=== PATIENT | male | born 1955 | race Caucasian/White ===

== ENCOUNTER → 2016-12-08 | Day surgery (SDC) | payer BC ==
[2016-11-20 15:10] VITALS: Ht 185.4 cm; Wt 136.4 kg
[~2016-12-08] VITALS: Ht 185.4 cm; Wt 136.4 kg
[~2016-12-08] MED LIST: 500ML BSS 0.3ML EPI 1:1000PF IRRIG ONE; ACETAMINOPHEN 325 MG TAB PO PRN; AMVISC PLUS 0.8ML SYRINGE INT OCU ONE; ATROPINE SULFATE 0.1 MG/ML 5ML SYR IV PRN; BRIMONIDINE TART 0.2% OP SOLN PER DROP CHARGE ONE; BSS FLUSH ONE; CHOL20007 PO; ENDOCOAT 0.85ML SYRINGE INT OCU ONE; EpHEDrine SULFATE INJ 50 MG/ML AMP IV PRN; EpINEphrine INJ 1MG/ML AMP 1 MG/ML AMP ONE; GLUCTAB18 PO; GLYCDRO6 OPB; LACTATED RINGER'S 1000ML 500 ML IV SCH; LIDOCAINE 4% OP SOLN DROP CHARGE ONE; LIDOCAINE 4% OP SOLN DROP CHARGE OPL SCH; LIDOCAINE HCL 1% MPF 2 ML VIAL ONE; LISI-729 PO; MELO15TA4 PO; METH4PAK PO; MIDAZOLAM HCL 1 MG/ML 2ML VIAL ONE; MIX: 3ML BSS AND 1ML EPI(PF) TOP ONE; MOXIFLOXACIN OPH SOLN PER DROP CHARGE ONE; MULT-506 PO; OMEG10007 PO; ONDANSETRON INJ 2 MG/ML 2 ML VIAL IV PRN; POVIDONE-IODINE OP SOLN 30 ML BTL ONE; PROPARACAINE 0.5% OP SOLN PER DROP CHARGE OPL SCH; SENNTAB23 PO; TOBRAMYCIN/DEXAMETHASONE OPH OINT PER APPLN CHARGE ONE; VISCOAT 0.5ML SYRINGE INT OCU ONE
--- NOTE | 2016-12-08 09:20 | History & Physical Bridge - [place] ---
H&P Re-Evaluation Bridge Note: I have examined the patient, reviewed the History & Physical and in the interval since the performance of the History & Physical I have noted the following changes of clinical significance: No changes noted
[2016-12-08] MEDS: PHENYLEPHRINE HCL 2.5% OP SOLN PER DROP CHARGE OPL SCH ×2 (09:21→09:26)
[2016-12-08] MEDS: TROPICAMIDE 1% OP SOLN PER DROP CHARGE OPL SCH ×2 (09:22→09:27)
[2016-12-08] MEDS: CYCLOPENTOLATE HCL 1% OP SOLN PER DROP CHARGE OPL SCH ×2 (09:23→09:28)
[2016-12-08] MEDS: KETOROLAC 0.5% OP SOLN PER DROP CHARGE OPL SCH ×2 (09:24→09:29)
[2016-12-08] MEDS: MOXIFLOXACIN OPH SOLN PER DROP CHARGE OPL SCH ×2 (09:25→09:35)
--- NOTE | 2016-12-08 10:14 | Discharge Instructions-[facility]urgCtr ---
Discharge Instructions Date of Service Dec 08, 2016. Visit Reason for Visit: Cataract Left Eye Discharge Discharge Diagnosis / Problem: cataract left eye Discharge Goals Goal(s): Improve function Activity Recommendations Activity Limitations: per Instructions/Follow-up section Lifting Limitations: no more than 5 pounds Anesthesia . Post Anesthesia Instructions: If you have had General Anesthesia or IV Sedation: * Do not drive today. * Resume driving when surgeon permits. * Do not make important decisions or sign legal documents today. * Call surgeon for: 1. Temperature elevations greater than 101 degrees F. 2. Uncontrollable pain. 3. Excessive bleeding. 4. Persistent nausea and vomiting. 5. Medication intolerance (nausea, vomiting or rash). * For nausea and vomiting use only clear liquids such as: tea, soda, bouillon until nausea subsides, then gradually increase diet as tolerated. * If you have any concerns or questions, call your surgeon's office. If physician is unavailable and it is an emergency, call 911 or go to the nearest emergency room. . Instructions / Follow-Up Instructions / Follow-Up ACTIVITY RECOMMENDATIONS: * Light activities * You may walk outside, read, watch television. * Mild irritation and blurred vision are common for the first few days, redness around the white part of the eye is common. MEDICATIONS: Resume previous medications unless instructed otherwise by your surgeon. Eye drops (today and tomorrow): Cipro - one drop in operative eye every 2 hours while awake Prednisolone 1% - one drop in operative eye every 2 hours while awake Ketorolac - one drop in operative eye every 2 hours while awake SPECIAL CARE INSTRUCTIONS: * If any problems or concerns, please call Dr. Ballesteros's office at . * Keep plastic shield taped over eye to sleep at night. * Keep plastic shield taped over eye except to administer eye drops. * Keep plastic shield on until office visit the following day. FOLLOW UP VISIT: Follow-up with Dr. Ballesteros in the [place] office as scheduled. If not already scheduled, please call the office at . Diet Recommendations Home Diet: resume previous diet Procedures Procedures Performed: Left Cataract Phacoemulsification With Intraocular Lens Implant Pending Studies Studies pending at discharge: no Medical Emergencies . Who to Call and When: Medical Emergencies: If at any time you feel your situation is an emergency, please call 911 immediately. . Non-Emergent Contact Non-Emergency issues call your: Traffic Assistant . . "Provider Documentation" section prepared by Jus Ballesteros. .
--- NOTE | 2016-12-08 10:16 | [facility] Operative Report ---
Operative Report Operative Date Dec 08, 2016. Pre-Operative Diagnosis Cataract Left Eye Post-Operative Diagnosis Same Procedure(s) Performed Left Cataract Phacoemulsification With Intraocular Lens Implant Surgeon Dr. Ballesteros Drying Can Worker Surgeon(s) None Estimated Blood Loss 0 mL Findings cataract left eye Specimens None Drains none Anesthesia local with sedation Complication(s) None Disposition Recovery Room / PACU Implants [id number] 16.5 Indications decreased vision left eye Description of Procedure After informed consent was obtained in the holding area the patient was wheeled back to the operating room where cardiac monitoring leads and oxygen by nasal cannula was administered by Anesthesia. Gentle IV sedation was given, and the patient's left eye was prepped and draped in usual sterile fashion. A wire lid speculum was placed into the left eye and the operating microscope was swung into position. Using 0.12 forceps and a Supersharp blade a paracentesis port was made 3 o'clock hours away from the 3 o'clock position of the patient's left eye. 1% non-preserved Lidocaine was then injected into the anterior chamber for anesthesia. A 2.0 mm keratotome blade was then used to make a shelved clear corneal incision at the 3 o'clock position of the left eye. Amvisc was injected into the anterior chamber and a cystotome and Utrata forceps were used to perform a curvilinear capsulorrhexis. BSS on a hydrodissection cannula was used to hydrodissect the lens nucleus away from the capsular bag. The phacoemulsification handpiece was then used in a stop and chop fashion to remove the lens nucleus. The irrigation and aspiration handpiece was then used to remove the residual cortical material. Amvisc was injected into the capsular bag and anterior chamber and a [employer]ch [employer] Lomb MX60 16.5 Diopter intraocular lens was injected into the capsular bag. Irrigation and aspiration handpiece was used to remove the residual viscoelastic material. The wounds were hydrated and noted to be watertight. The wire lid speculum was removed from the eye. Vigamox, Brimonidine, and TobraDex ointment were placed on the eye and it was shielded. It should be noted that EndoCoat was used extensively during the case to protect the cornea endothelium. DISPOSITION: The patient tolerated the procedure well and was wheeled to the post anesthesia care unit in stable condition. I attest to the content of the Intraoperative Record and any orders documented therein. Any exceptions are noted below. I attest to the content of the Intraoperative Record and any orders documented therein. Any exceptions are noted below.
[2016-12-08 10:18] VITALS: TEMP 37
--- NOTE | 2016-12-08 10:33 | Anesthesia Progress Nt - [facility] ---
Anesthesia Post Op Note Date & Time Dec 08, 2016 at 10:33 Vital Signs Pain Intensity: 0 Vital Signs Past 12 Hours Date Time Temp Pulse Resp B/P (MAP) Pulse Ox O2 Delivery O2 Flow Rate FiO2 12/08/16 10:18 37 78 18 121/75 (90) 96 Room Air 12/08/16 09:01 36.8 81 20 158/95 (116) 94 Room Air Notes Mental Status: alert / awake / arousable, participated in evaluation Pt Amnestic to Procedure: Yes Nausea / Vomiting: adequately controlled Pain: adequately controlled Airway Patency, RR, SpO2: stable & adequate BP & HR: stable & adequate Hydration State: stable & adequate Anesthetic Complications: no major complications apparent
[2016-12-08 10:36] VITALS: BP 125/83; PULSE 77; O2SAT 96
== END | disposition home or self-care (01) ==
LOC: X.SURG 08:30
PROVIDERS: ATTEND Ophthalmology
DX: H25.12 Age-related nuclear cataract, left eye (principal); I10 Essential (primary) hypertension; Z87.81 Personal history of (healed) traumatic fracture; M19.90 Unspecified osteoarthritis, unspecified site; E66.9 Obesity, unspecified; Z87.442 Personal history of urinary calculi; N40.0 Benign prostatic hyperplasia without lower urinary tract symptoms

== ENCOUNTER → 2017-02-18 | Outpatient (CLI) | payer BC ==
[~2017-02-18] MED LIST changes: -500ML BSS 0.3ML EPI 1:1000PF IRRIG ONE; -ACETAMINOPHEN 325 MG TAB PO PRN; -AMVISC PLUS 0.8ML SYRINGE INT OCU ONE; -ATROPINE SULFATE 0.1 MG/ML 5ML SYR IV PRN; -BRIMONIDINE TART 0.2% OP SOLN PER DROP CHARGE ONE; -BSS FLUSH ONE; -ENDOCOAT 0.85ML SYRINGE INT OCU ONE; -EpHEDrine SULFATE INJ 50 MG/ML AMP IV PRN; -EpINEphrine INJ 1MG/ML AMP 1 MG/ML AMP ONE; -LACTATED RINGER'S 1000ML 500 ML IV SCH; -LIDOCAINE 4% OP SOLN DROP CHARGE ONE; -LIDOCAINE 4% OP SOLN DROP CHARGE OPL SCH; -LIDOCAINE HCL 1% MPF 2 ML VIAL ONE; -MIDAZOLAM HCL 1 MG/ML 2ML VIAL ONE; -MIX: 3ML BSS AND 1ML EPI(PF) TOP ONE; -MOXIFLOXACIN OPH SOLN PER DROP CHARGE ONE; -ONDANSETRON INJ 2 MG/ML 2 ML VIAL IV PRN; -POVIDONE-IODINE OP SOLN 30 ML BTL ONE; -PROPARACAINE 0.5% OP SOLN PER DROP CHARGE OPL SCH; -TOBRAMYCIN/DEXAMETHASONE OPH OINT PER APPLN CHARGE ONE; -VISCOAT 0.5ML SYRINGE INT OCU ONE
--- NOTE | 2017-02-18 14:50 | DIAGNOSTIC IMAGING REPORT ---
FLUOROSCOPIC GUIDED LEFT HIP STEROID INJECTION FLUOROSCOPY TIME: 12 seconds. 1 fluoroscopic spot image. HISTORY: Left hip pain.. PROCEDURE: After obtaining written informed consent, the patient was placed supine on the fluoroscopy table. A suitable site for needle insertion was marked using fluoroscopic guidance. The left hip was prepped and draped in the usual sterile fashion. 1% lidocaine was used for skin, subcutaneous and deep soft tissue anesthesia. Under intermittent fluoroscopic guidance, a 22 gauge x 5 inch spinal needle was inserted into the left hip joint. 2 cc of Optiray 300 was injected to confirm the intra-articular location. This is followed by a mixture of 8cc of 0.5% bupivacaine and 2 cc of betamethasone at the request of the referring physician. The needle was then removed. There were no apparent complications. IMPRESSION: Fluoroscopic-guided left hip steroid injection without immediate complication. Electronically signed by: Alberto Monique M.D. 02/18/2017 2:49 PM Dictated Date/Time: 02/18/2017 2:47 PM
== END | disposition home or self-care (01) ==
LOC: C.RADBC 13:32
PROVIDERS: ATTEND Orthopaedic Surgery
DX: M16.12 Unilateral primary osteoarthritis, left hip (principal)

== ENCOUNTER → 2017-08-04 | Day surgery (SDC) | payer BC, OTHER ==
[2017-07-24 14:01] VITALS: Ht 185.4 cm; Wt 136.4 kg
[~2017-08-04] VITALS: Ht 185.4 cm; Wt 136.4 kg
[~2017-08-04] MED LIST changes: +LIDOCAINE HCL 2% 2 ML VIAL (20MG/ML) ONE; +MELO-83 PO; -MELO15TA4 PO; -METH4PAK PO; +MIDAZOLAM HCL 1 MG/ML 2ML VIAL ONE; +ONDANSETRON INJ 2 MG/ML 2 ML VIAL ONE; +PROPOFOL IV EMULSION 10 MG/ML 20 ML VIAL IV ONE; +SODIUM CHLORIDE 0.9% 500ML 500 ML IV ONE
--- NOTE | 2017-08-04 09:54 | Endo History and Physical ---
History & Physical Date of Service: Aug 04, 2017. Chief Complaint: Screening Referring Physician: Dr. Kenneth Carpenter History of Present Illness 62 yo CM who presents for screening colonoscopy. Past Surgical History Hx Cardiac Surgery: No Hx Internal Defibrillator: No Hx Pacemaker: No Hx Abdominal Surgery: No Hx Post-Op Nausea and Vomiting: No Hx Cancer Surgery: No Hx Thoracic Surgery: No Hx Orthopedic: Yes (RT LOWER ARM SURGERY WITH HARDWARE, ANKLE SURGERY WITH HARDWARE) Hx Urinary Tract Surgery: No Family History None Social History Smoking Status: Never Smoker Hx Substance Use: No Hx Alcohol Use: Yes (OCCASIONAL) Allergies Coded Allergies: No Known Allergies (Verified , 08/04/17) Current Medications Reported Home Medications Medications Dose Route/Sig Max Daily Dose Days Date Category Artificial Tears (Tskuzprr-Heaiuhzmklbo-Vhuddxxm) 1 Felice Felice 1 Drop OPB BID-QID 11/20/16 Reported Stool Softener (Sennosides-Docusate Sodium) 1 Tab Tab 2 Tab PO QPM 11/20/16 Reported Multivitamin (Multivitamins) Tab 1 Tab PO QPM 11/20/16 Reported Osteo Bi-Flex Regular Str (Glucosamine-Chondroitin) 1 Tab Tab 2 Tabs PO QPM 11/20/16 Reported Bone Gap-3 (Fish Oil) 1 Ea Cap 1 Cap PO QPM 11/20/16 Reported Vitamin D3 (Cholecalciferol) 2,000 Unit Tab 1 Tab PO QPM 11/20/16 Reported Meloxicam 15 Mg Tab 1 Tab PO LUNCH 11/20/16 Reported Zestril (Lisinopril) 5 Mg Tab 5 Mg PO QAM 11/20/16 Reported Vital Signs Weight (Kilograms): 136.36 Height (Feet): 6 Height (Inches): 1 Date Time Temp Pulse Resp B/P (MAP) Pulse Ox O2 Delivery O2 Flow Rate FiO2 08/04/17 08:55 37 99 20 114/76 (89) 95 Room Air Physical Exam General Appearance: WD/WN, no apparent distress Respiratory/Chest: Auscultation: breath sounds normal Cardiovascular: Heart Auscultation: RRR Abdomen: Bowel Sounds: normal Inspection & Palpation: soft, non-distended, no tenderness, guarding & rebound Assessment and Plan Assessment: 62 yo CM who presents for screening colonoscopy. Plan: Proceed with colonoscopy.
--- NOTE | 2017-08-04 10:48 | Discharge Instructions ---
Endoscopy Patient Instructions Date / Procedure(s) Performed Aug 04, 2017. Colonoscopy Allergy Information Coded Allergies: No Known Allergies (Verified , 08/04/17) Discharge Date / Findings Aug 04, 2017. Colon polyp Diverticulosis Internal hemorrhoids Medication Instructions Stopped Medication(s): last dose all supplements on Thursday charmaine OK to resume all medications today as prescribed Reported Home Medications Medications Dose Route/Sig Max Daily Dose Days Date Category Artificial Tears (Jshwhcrh-Uekfjgysubyd-Pgigjiqn) 1 Felice Felice 1 Drop OPB BID-QID 11/20/16 Reported Stool Softener (Sennosides-Docusate Sodium) 1 Tab Tab 2 Tab PO QPM 11/20/16 Reported Multivitamin (Multivitamins) Tab 1 Tab PO QPM 11/20/16 Reported Osteo Bi-Flex Regular Str (Glucosamine-Chondroitin) 1 Tab Tab 2 Tabs PO QPM 11/20/16 Reported [place]der[place]-3 (Fish Oil) 1 Ea Cap 1 Cap PO QPM 11/20/16 Reported Vitamin D3 (Cholecalciferol) 2,000 Unit Tab 1 Tab PO QPM 11/20/16 Reported Meloxicam 15 Mg Tab 1 Tab PO LUNCH 11/20/16 Reported Zestril (Lisinopril) 5 Mg Tab 5 Mg PO QAM 11/20/16 Reported Provider Instructions Activity Restrictions - No exercising or heavy lifting for 24 hours. - Do not drink alcohol the day of the procedure. - Do not drive a car or operate machinery until the day after the procedure. - Do not make any important decisions or sign important papers in 24 hours after the procedure. Following Day: - Return to full activity which may include returning to work/school. Diet Start your diet with liquids and light foods (jello, soup, juice, toast). Then eat your usual diet if not nauseated. Treatment For Common After Affects For mild abdominal pain, bloating, or excessive gas: - Rest - Eat lightly - Lie on right side Follow-Up Information Follow-up with Dr. Kenneth Carpenter as scheduled Anesthesia Information What You Should Know You have had a procedure that required some medicine to reduce anxiety and discomfort. This treatment is called moderate sedation. After receiving the treatment, you may be sleepy, but you will be able to breathe on your own. The effects of the treatment may last for several hours. Follow these instructions along with Activity/Diet recommendations noted above: * Do NOT do anything where dizziness or clumsiness would be dangerous. * Rest quietly at home today, then you can be up and about tomorrow. * Have a responsible person stay with you the rest of today. * You may have had an I.V. today. If so, you may take the dressing off later today. Recommendations Call your doctor if: * Trouble breathing * Continuous vomiting for more than 24 hours * Temperature above 101 degrees * Severe abdominal pain or bloating * Pain not relieved by pain medicine ordered * There is increased drainage or redness from any incision * A large amount of rectal bleeding greater than 2-3 tablespoons. (If you had a polyp/s removed or have hemorrhoids, a small amount of blood - from the rectum is to be expected.) * You have any unanswered questions or concerns. IN THE EVENT OF A SERIOUS EMERGENCY, GO TO THE NEAREST EMERGENCY ROOM Your discharge instructions were prepared by provider Sherif Vargas. Patient Instructions Signature Page [place] Patient (or Guardian) Signature/Date: I have read and understand the instructions given to me by my caregivers. Caregiver/RN/Doctor Signature/Date: The above-named patient and/or guardian has received patient instructions on this date. + Original Patient Signature Page (only) stays with chart. Please make copy for patient.
--- NOTE | 2017-08-04 10:52 | GI REPORT ---
Procedure Date: 08/04/2017 9:19 AM Procedure: Colonoscopy Indications: Screening for colorectal malignant neoplasm Medicines: Monitored Anesthesia Care Complications: No immediate complications. Estimated Blood Loss: Estimated blood loss: none. Procedure: Pre-Anesthesia Assessment: - Prior to the procedure, a History and Physical was performed, and patient medications and allergies were reviewed. The patient's tolerance of previous anesthesia was also reviewed. The risks and benefits of the procedure and the sedation options and risks were discussed with the patient. All questions were answered, and informed consent was obtained. Prior Anticoagulants: The patient has taken no previous anticoagulant or antiplatelet agents. ASA Grade Assessment: III - A patient with severe systemic disease. After reviewing the risks and benefits, the patient was deemed in satisfactory condition to undergo the procedure. After I obtained informed consent, the scope was passed under direct vision. Throughout the procedure, the patient's blood pressure, pulse, and oxygen saturations were monitored continuously. The Scope was introduced through the anus and advanced to the terminal ileum. The colonoscopy was performed without difficulty. The patient tolerated the procedure well. The quality of the bowel preparation was good. The terminal ileum, ileocecal valve, appendiceal orifice, and rectum were photographed. Findings: The perianal and digital rectal examinations were normal. A 4 mm polyp was found in the sigmoid colon. The polyp was sessile. The polyp was removed with a cold snare. Resection and retrieval were complete. Multiple small-mouthed diverticula were found in the sigmoid colon. Non-bleeding internal hemorrhoids were found during retroflexion. The hemorrhoids were small. Impression: - One 4 mm polyp in the sigmoid colon, removed with a cold snare. Resected and retrieved. - Diverticulosis in the sigmoid colon. - Non-bleeding internal hemorrhoids. Recommendation: - Resume previous diet. - Continue present medications. - Repeat colonoscopy for surveillance based on pathology results. - Return to primary care physician as previously scheduled. Sherif Vargas, DO 08/04/2017 10:52:27 AM This report has been signed electronically. Note Initiated On: 08/04/2017 9:19 AM I attest to the content of the Intraoperative Record and orders documented therein, exceptions below
[2017-08-04 11:10] VITALS: BP 115/80; PULSE 84; O2SAT 99
--- NOTE | 2017-08-04 11:26 | Anesthesiology Progress Note ---
Anesthesia Post Op Note Date & Time Aug 04, 2017 at 11:26 Vital Signs Pain Intensity: 10 Vital Signs Past 12 Hours Date Time Temp Pulse Resp B/P (MAP) Pulse Ox O2 Delivery O2 Flow Rate FiO2 08/04/17 11:10 84 20 115/80 (92) 99 Room Air 08/04/17 10:53 82 20 113/75 (88) 99 Room Air 08/04/17 10:37 90 20 116/79 (91) 99 Room Air 08/04/17 08:55 37 99 20 114/76 (89) 95 Room Air Notes Mental Status: alert / awake / arousable, participated in evaluation Pt Amnestic to Procedure: Yes Nausea / Vomiting: adequately controlled Pain: adequately controlled Airway Patency, RR, SpO2: stable & adequate BP & HR: stable & adequate Hydration State: stable & adequate Anesthetic Complications: no major complications apparent
== END | disposition home or self-care (01) ==
LOC: C.GI 08:18
PROVIDERS: ATTEND Internal Medicine
DX: Z12.11 Encounter for screening for malignant neoplasm of colon (principal); D12.5 Benign neoplasm of sigmoid colon; K57.30 Diverticulosis of large intestine without perforation or abscess without bleeding; K64.8 Other hemorrhoids; Z79.899 Other long term (current) drug therapy

== ENCOUNTER → 2017-09-30 | Outpatient (CLI) | payer OTHER ==
[~2017-09-30] MED LIST changes: -LIDOCAINE HCL 2% 2 ML VIAL (20MG/ML) ONE; -MIDAZOLAM HCL 1 MG/ML 2ML VIAL ONE; -ONDANSETRON INJ 2 MG/ML 2 ML VIAL ONE; -PROPOFOL IV EMULSION 10 MG/ML 20 ML VIAL IV ONE; -SODIUM CHLORIDE 0.9% 500ML 500 ML IV ONE
--- NOTE | 2017-10-01 07:56 | DIAGNOSTIC IMAGING REPORT ---
Senthil ALMEIDAT SHLDR,HIP,KNEE FLUOROSCOPY TIME: 1 minute 5 seconds HISTORY: Chronic left hip pain PROCEDURE: After obtaining written informed consent, the patient was placed supine on the fluoroscopy table. A suitable site for needle insertion was marked using fluoroscopic guidance. The left hip was prepped and draped in the usual sterile fashion. 1% lidocaine was used for skin, subcutaneous and deep soft tissue anesthesia. Under intermittent fluoroscopic guidance, a 22 gauge x 3.5 inch spinal needle was inserted into the left femoral acetabular joint. 2 cc of Optiray 300 was injected to confirm the intra-articular location. Intra-articular placement of the needle was difficult secondary to patient body habitus. This is followed by a mixture of 5cc of 0.5% bupivacaine and 2 cc of betamethasone at the request of the referring physician. The needle was then removed. There were no apparent complications. IMPRESSION: Fluoroscopic-guided left hip steroid injection without immediate complication. The above report was generated using voice recognition software. It may contain grammatical, syntax or spelling errors. Electronically signed by: Perez Calvin M.D. 10/01/2017 7:55 AM Dictated Date/Time: 10/01/2017 7:53 AM
== END | disposition home or self-care (01) ==
LOC: C.RADBC 13:46
PROVIDERS: ATTEND Orthopaedic Surgery
DX: M16.12 Unilateral primary osteoarthritis, left hip (principal)

== ENCOUNTER 2018-12-22 04:46 | Inpatient (IN) ==
--- NOTE | 2018-12-01 13:08 | PAT Medication Instructions ---
Medication Instructions Date of Service December 01, 2018 Home Medications cholecalciferol (vitamin D3) 2,000 unit PO QPM glucosamine-chondroitin [Osteo Bi-Flex] 2 tab PO QPM multivitamin 1 tab PO QPM acetaminophen 1,000 mg PO Q8H PRN docusate sodium [Colace] 200 mg PO QDD lisinopril 10 mg PO QAM meloxicam 15 mg PO QAM omega 1-kqs-hoh-fish oil [Fish Oil] 1 cap PO QPM ASK your surgeon for instructions meloxicam 15 mg PO QAM STOP taking 2 weeks before surgery glucosamine-chondroitin [Osteo Bi-Flex] 2 tab PO QPM omega 6-csk-gkr-fish oil [Fish Oil] 1 cap PO QPM DO NOT take the morning of surgery lisinopril 10 mg PO QAM Take evening before surgery cholecalciferol (vitamin D3) 2,000 unit PO QPM multivitamin 1 tab PO QPM acetaminophen 1,000 mg PO Q8H PRN (if needed) docusate sodium [Colace] 200 mg PO QDD *NOTHING TO EAT OR DRINK AFTER MIDNIGHT* Other Notes If you have any questions please call us at [phone] or [phone] or [phone] or [phone]
--- NOTE | 2018-12-01 13:28 | Anesthesiology Consultation ---
Date of Service December 01, 2018 Assessment & Plan (1) Encounter for pre-operative examination: Check BSG AM DOS Chart Review Chart Review: Acceptable Risk for Surgery and Patient seen in Pre Admission Testing Teaching & Discussion Pre-Anesthesia Teaching/Discussion Notes: Instructed NPO after midnight before surgery,except medications with 15 cc of water. Medication instructions provided according to the PAT guidelines. History Surgery Operation Date: 12/22/18 10:55 Proposed Procedures p Left Total Hip Arthroplasty - Varghese Blair MD Height/Weight Height: 6 ft 1 in Weight: 133.6 kg Allergies Allergy/AdvReac Type Severity Reaction Status Date / Time No Known Allergies Allergy Verified 11/25/18 13:09 Medications Home Medications Medication Instructions Recorded Confirmed Last Taken cholecalciferol (vitamin D3) 2,000 unit PO QPM 04/14/18 11/25/18 04/13/18 [Vitamin D3] glucosamine-chondroitin [Osteo 2 tab PO QPM 04/14/18 11/25/18 04/13/18 Bi-Flex] multivitamin 1 tab PO QPM 04/14/18 11/25/18 04/13/18 acetaminophen 1,000 mg PO Q8H PRN 11/25/18 11/25/18 Unknown docusate sodium [Colace] 200 mg PO QDD 11/25/18 11/25/18 Unknown lisinopril 10 mg PO QAM 11/25/18 11/25/18 Unknown meloxicam 15 mg PO QAM 11/25/18 11/25/18 Unknown omega 4-reu-cgs-fish oil [Fish Oil] 1 cap PO QPM 11/25/18 11/25/18 Unknown Past Medical History Medical History DJD (degenerative joint disease) HTN (hypertension) History of kidney stones Obesity Prediabetes Exercise / Class Metabolic Activity III < 4 Walking/Shop/Light housework (uses cane PRN) Past Family History Family History Brother Family history of diabetes mellitus Past Surgical History Surgical History History of open reduction and internal fixation (ORIF) procedure RIGHT ARM AND ANKLE Past Anesthesia History No Hx of Anesthesia Complications and No Family Hx of Anesthesia Complications History of PONV No Hx of PONV and No Hx of Motion Sickness Social History Smoking Status: Never smoker Do You Dip or Chew Tobacco: No Hx Alcohol Use: Yes Alcohol type: beer and hard liquor alcohol intake frequency: holidays/special occasions only Hx Substance Use: No Review of Systems URI symptoms improving. Patient denies chest pain, shortness of breath, reflux, cough, wheezing, palpitations. Physical Exam Vital Signs VITALS BP 118/79 P 99 TEMP 98.1 SP02 95%RA RESP 18 PHYSICAL Full neck and c-spine range of motion. Full TMJ range of motion. TMD 3.5 finger breaths Mallampati Score 2 Dentition: intact, crowns several "all over" Lungs: clear throughout to auscultation Cardiac: regular rate and rhythm, no murmurs noted Spine: normal Carotid arteries: negative bruit Extremities: no edema Testing Laboratory Results 12/01/18 13:57 12/01/18 13:57 PT 10.3 Seconds (9.0-12.0) 12/01/18 13:57 INR 1.0 (0.9-1.1) 12/01/18 13:57 APTT 24.5 Seconds (21.0-31.0) 12/01/18 13:57 Blood Type A Positive 12/01/18 13:57 Antibody Screen NEGATIVE 12/01/18 13:57 Electrocardiogram Date: 04/14/18 Findings: + NSR @ (88) Chest X-Ray Date: 12/01/18 Findings: + NAD
--- NOTE | 2018-12-01 14:14 | XRay Report ---
XR chest Pre-admission PA/Lat HISTORY: Preop. COMPARISON: None. FINDINGS: The lungs are clear. Cardiac silhouette is normal in size. No pleural effusions. No pneumot horax. IMPRESSION: No acute process. Electronically signed by: Alberto Monique M.D. 12/01/2018 2:12 PM
[2018-12-01 14:43] LABS: Basophils # (auto) 0.04 K/uL (0-0.2); Basophils % (auto) 0.6 %; Eosinophils # (auto) 0.08 K/uL (0-0.5); Eosinophils % (auto) 1.2 %; Hematocrit (blood only) 47.1 % (42-52); Hemoglobin 15.5 g/dL (14.0-18.0); Immature Granulocytes # (auto) 0.04 K/uL (0.00-0.02); Immature Granulocytes % (auto) 0.6 %; Lymphocytes # (auto) 0.96 K/uL (1.2-3.4); Lymphocytes % (auto) 14.2 %; Mean Corpuscular Hgb Conc 32.9 g/dL (32-36); Mean Corpuscular Volume 92.2 fL (80-100); Mean Platelet Volume 10.3 fL (7.4-10.4); Monocytes % (auto) 8.9 %; Neutrophils # (auto) 5.04 K/uL (1.4-6.5); Neutrophils % (auto) 74.5 %; Platelet Count 223 K/uL (130-400); RDW Coefficient of Variation 13.9 % (11.5-14.5); Red Blood Count 5.11 M/uL (4.7-6.1); White Blood Count 6.76 K/uL (4.8-10.8)
[2018-12-01 14:51] LABS: BUN Creatinine Ratio 14.4 (10-20); Calcium 9.4 mg/dl (8.5-10.1); Creatinine Clr Calc Pharmacy 74.3 ml/min; Est GFR (African American) 59.1; Potassium 4.5 mmol/L (3.5-5.1)
[2018-12-01 14:52] LABS: C Reactive Protein 0.74 mg/dl (0-0.29)
[2018-12-01 14:56] LABS: Partial Thromboplastin Ratio 0.9; Partial Thromboplastin Time 24.5 Seconds (21.0-31.0); Prothrombin Time 10.3 Seconds (9.0-12.0)
--- NOTE | 2018-12-17 22:03 | History and Physical Report ---
DATE OF ADMISSION: 12/22/2018 CHIEF COMPLAINT: Left hip pain. HISTORY OF PRESENT ILLNESS: The patient is a 63-year-old gentleman who presents for surgical treatment of his left hip. He has about a 15-year history of increasing left hip pain and discomfort; it has gradually gotten worse over time. He has been trying to put joint replacement off as long as possible, but he has become significantly debilitated by this. He describes buttock pain, lateral hip pain, groin pain radiating down to his knee. He has been using a cane to get around for the past several years. He now would like to have his hip fixed. The pain is constant. The more he walks, the more he hurts. His walking tolerance is about a block. PAST MEDICAL HISTORY: 1. Hypertension. 2. Low back pain. 3. Obesity with a BMI of 40. 4. Kidney stones. 5. BPH. PAST SURGICAL HISTORY: Includes: 1. Right forearm surgery for fracture. 2. Ankle fracture. ALLERGIES: None. CURRENT MEDICINES: 1. Meloxicam 15 mg. 2. Lisinopril 10 mg. 3. Vitamin D. 4. Stool softener. 5. Omegared. 6. Multivitamin. SOCIAL HISTORY: A 63-year-old male patient from [facility]. He is . Does not smoke. 1-2 drinks per week. FAMILY HISTORY: Noncontributory. REVIEW OF SYSTEMS: Significant for obesity. Denies any current chest pain or shortness of breath. No history of DVT or PE. No known bleeding problems. PHYSICAL EXAMINATION: GENERAL: Shows a pleasant, middle-aged male. Looks to be in reasonably good health. HEENT: Benign. NECK: Supple, no lymphadenopathy. LUNGS: Clear to auscultation. HEART: Has a regular rate and rhythm. ABDOMEN: Soft, nontender, nondistended. EXTREMITIES: Grossly neurovascularly intact except as follows: Examination of the left hip reveals the patient walks with a markedly antalgic gait. He comes in using a cane today. He is about 1 cm short on the left side compared to the right. He has a very stiff hip. External rotation contracture about 15 degrees. He has pain with any type of hip motion. No knee effusion. He is neurologically intact. A little bit of edema distally. X-RAYS: X-rays of the left hip were reviewed, show advanced left hip DJD. He has got complete loss of his superior joint space. He has got a significant flattening and degenerative changes of the femoral head. 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 ASSESSMENT: A 63-year-old male with advanced left hip degenerative joint disease, unresponsive to conservative treatment. This is significantly limiting his activities. He would like to proceed with left hip replacement. PLAN: We are going to take him to the operating room and do a left total hip replacement. The risks and benefits of this procedure were explained to the patient including but not limited to DVT, PE, , infection, neurological injury, vascular injury, bleeding problem, pain, limited range of motion, stiffness, failure to relieve symptoms, incomplete relief of symptoms, need for further surgery in the future, fracture, leg length inequality, nerve palsy, etc. The patient understands and desires to proceed. Informed consent was obtained. I am going to plan using an uncemented stem, but we will have a cemented stem available due to his osteopenia. He knows to stop his meloxicam 10 days preop. He is planning to be discharged home using [facility] home health program. His creatinine is a bit elevated and we will have him to be careful using any NSAIDs postoperatively. We will likely use baby aspirin twice a day, but we will hold off on his Mobic in the postoperative period.
[2018-12-22] MEDS ORDERED: FAMOTIDINE 20 MG TAB PO SCH (06:00)
[2018-12-22] MEDS ORDERED: BUPIVACAINE LIPOSOME/PF 266 MG, BUPIVACAINE/EPINEPHRINE 50 ML, SODIUM CHLORIDE 0.9% 30 ... INFIL SCH (06:00)
[2018-12-22] MEDS ORDERED: TRANEXAMIC ACID 1,000 MG **IV Pre-op IV SCH (06:00)
[2018-12-22] MEDS ORDERED: ACETAMINOPHEN 500 MG TAB PO SCH (06:00)
[2018-12-22] MEDS ORDERED: SCOPOLAMINE 1.5 MG TDSY TD SCH (06:00)
[2018-12-22] MEDS ORDERED: CEFAZOLIN 2000MG 2,000 MG/15 ML SYR IV SCH (06:00)
[2018-12-22] MEDS ORDERED: GABAPENTIN 600 MG DOSE PO SCH (06:00)
[2018-12-22] MEDS ORDERED: LR 60ML/HR IV SCH (06:00)
[2018-12-22] MEDS ORDERED: LR 500ML BOLUS, THEN 15ML/HR IV SCH (06:00)
[2018-12-22] MEDS ORDERED: METOCLOPRAMIDE HCL 10 MG TABLET PO SCH (06:00)
[2018-12-22] MEDS ORDERED: BUPIVACAINE 0.5 % 5 MG/1 ML PF 10ML VIAL ONE (06:16)
[2018-12-22] MEDS ORDERED: PROPOFOL IV EMULSION 10 MG/ML 20 ML VIAL IV ONE ×2 (06:47→07:54)
[2018-12-22] MEDS ORDERED: fentaNYL citrate 100 MCG/2 ML VIAL ONE (06:47)
[2018-12-22] MEDS ORDERED: LIDOCAINE HCL 2% 2 ML VIAL/AMP(20MG/ML) INFIL ONE (06:47)
[2018-12-22] MEDS ORDERED: KETAMINE HCL INJ 50 MG/ML 10 ML VIAL ONE (06:48)
[2018-12-22] MEDS ORDERED: MoRPHine SULFATE PF 1 MG/ML 10 ML AMP/VIAL ONE (06:48)
[2018-12-22] MEDS ORDERED: MIDAZOLAM HCL 1 MG/ML 2ML VIAL ONE ×2 (06:49→07:33)
[2018-12-22] MEDS ORDERED: NALOXONE HCL 0.4 MG/1 ML VIAL/CARP IV PRN ×2 (06:52→10:11)
[2018-12-22] MEDS ORDERED: ONDANSETRON INJ 2 MG/ML 2 ML VIAL IV PRN ×2 (06:52→10:11)
[2018-12-22] MEDS ORDERED: MEPERIDINE HCL 25 MG/ML CARP IV PRN (06:52)
[2018-12-22] MEDS ORDERED: NALOXONE HCL 1 MG in SODIUM CHLORIDE 0.9% 1000ML 1,000 ML IV PRN (06:52)
[2018-12-22] MEDS ORDERED: MoRPHine SULFATE PF 1 MG/ML 10 ML AMP/VIAL INT SPINAL ONE (06:52)
[2018-12-22] MEDS ORDERED: DiphenhydrAMINE HCL 50 MG/ML VIAL IV PRN (06:52)
[2018-12-22] MEDS ORDERED: LACTATED RINGER'S 500 ML IV PRN (06:52)
[2018-12-22] MEDS ORDERED: PROMETHAZINE HCL 12.5 MG in SODIUM CHLORIDE 0.9% 50 ML IV PRN (06:52)
[2018-12-22] MEDS ORDERED: ePHEDrine sulfate 50 MG/ML AMP IV PRN (06:52)
[2018-12-22] MEDS ORDERED: NALOXONE HCL 0.08 MG in SYRINGE 1.8 ML IV PRN (06:52)
[2018-12-22] MEDS ORDERED: NALBUPHINE HCL INJ 10 MG/ML AMP IV PRN (06:52)
[2018-12-22] MEDS ORDERED: KETOROLAC 30 MG/ML VIAL IV PRN (06:52)
--- NOTE | 2018-12-22 06:55 | History & Physical Bridge Note ---
Date of Service December 22, 2018 History & Physical Bridge Note I have examined the patient, reviewed the History & Physical and in the interval since the performance of the History & Physical I have noted the following changes of clinical significance: no changes noted
[2018-12-22] MEDS ORDERED: BUPIVACAINE/EPINEPHRINE 0.5% MPF 1:200,000 30 ML VIAL ONE (06:56)
[2018-12-22] MEDS ORDERED: BACITRACIN INJ 50,000 UNIT VIAL ONE (06:56)
[2018-12-22] MEDS ORDERED: NO NARCOTICS OR SEDATIVES SCH (07:00)
[2018-12-22] MEDS ORDERED: SODIUM CHLORIDE 0.9% 1000ML 1,000 ML IV SCH (07:00)
[2018-12-22] MEDS ORDERED: DC INTRASPINAL MORPHINE SCH (07:00)
[2018-12-22] MEDS ORDERED: CEFAZOLIN 250 MG/ML 1 GM VIAL ONE (07:54)
[2018-12-22] MEDS ORDERED: ONDANSETRON INJ 2 MG/ML 2 ML VIAL ONE (08:00)
--- NOTE | 2018-12-22 08:47 | Post Operative Brief Note ---
PG Immediate Post Op with CF Date of Surgery December 22, 2018 Pre & Post Diagnosis Operation Date: 12/22/18 07:15 Pre-Op Diagnosis: Left Hip Degenerative Joint Disease Post-Op Diagnosis: Left Hip Degenerative Joint Disease Procedure Operation Date: 12/22/18 07:15 Actual Procedures p Left Total Hip Arthroplasty(Left) - Varghese Blair MD Surgeon Varghese Blair MD Wheel And Caster Repairer Kallie, PAC Estimated Blood Loss 200 Findings Consistent with Post-Op Diagnosis Fluids 1200 cc Specimens Specimen Description: Permanent specimen A: left femoral head Drains Bahena Catheter (16fr bahena catheter insertion attempted by Clair Arreguin PA-C; unable to insert. 12fr bahena catheter placed without difficulty; bahena demonstrates clear yellow urine. Output measured and recorded by anesthesia.) Anesthesia Type Spinal MAC Complications none Disposition Accompanied Patient To Recovery: Yes Disposition: Recovery Room
--- NOTE | 2018-12-22 09:27 | XRay Report ---
XR hip 1V LT w pelvis CLINICAL HISTORY: Postop hip arthroplasty. Degenerative arthritis. COMPARISON: August 2012 DISCUSSION: There are postsurgical changes of a total left hip arthroplasty. The acetabular and femor al components appear well seated. Overlying skin galdino are visualized. There is no dislocation. IMPRESSION: Total left hip arthroplasty. No evidence of dislocation. Electronically signed by: Mark Taylor M.D. 12/22/2018 9:26 AM
--- NOTE | 2018-12-22 09:58 | Operative Report ---
DATE OF OPERATION: 12/22/2018 SURGEON: Varghese Blair MD COMPUTER SYSTEM TECHNICIAN: VASU Thurman PREOPERATIVE DIAGNOSIS: Left hip degenerative joint disease. POSTOPERATIVE DIAGNOSIS: Left hip degenerative joint disease. PROCEDURE PERFORMED: Left uncemented ceramic on highly cross-linked polyethylene total hip arthroplasty. COMPLICATIONS: None. ESTIMATED BLOOD LOSS: 200 mL. FLUID REPLACEMENT: 1200 mL crystalloid fluid replacement. ANESTHESIA: Spinal. DRAINS: None. SPECIMEN: Left femoral head sent for pathology. OPERATIVE INDICATIONS: The patient is a 63-year-old gentleman who has had a long history of left hip pain and discomfort that has gradually gotten worse over time. We put surgery off as long as possible. He is markedly debilitated by the pain requiring a cane to get around. X-rays show advanced hip DJD. He has failed conservative treatment and elected to proceed with surgical treatment. OPERATIVE FINDINGS: Operative findings were advanced left hip DJD. Extensive grade 4 changes of the femoral head and acetabulum. He had a large anterior acetabular osteophyte. OPERATIVE IMPLANTS: Operative implants consisted of: 1. A Biomet G7 size 60 mm acetabular shell. 2. 6.5 cancellous acetabular screws, 1 at 35 mm in length and 1 at 25 mm in length. 3. An apex hole eliminator. 4. A highly cross-linked polyethylene liner with a 60 mm outer diameter and 36 mm inner diameter. 5. DePuy Corail size 14 KLA femoral stem. 6. +8.5/36 mm ceramic articular ball. OPERATIVE PROCEDURE: The patient was taken to the operating room, identified and placed on the operating table in supine position. All contact areas were appropriately padded. IV antibiotics provided by anesthesia team. A spinal anesthetic had been implemented in the holding area. Bethea catheter was placed in a sterile fashion. The patient was then placed in the right lateral decubitus position. An axillary roll was placed. [facility] was used for positioning. The left hip and leg were then prepped and draped in usual sterile fashion. A posterolateral approach to the left hip was then performed through a curvilinear incision centered over the greater trochanter. Sharp dissection was carried through subcutaneous tissues down to the level of the IT band and gluteal fascia. The IT band and gluteal fascia were then incised longitudinally in line with skin incision. The external rotators and the posterior hip capsule were then taken down as a single layer, taking great care to protect the sciatic nerve at all times. Hip was internally rotated and dislocated. Femoral neck osteotomy cut was made with final cut about 12 mm above the lesser trochanter. Femoral head was removed and sent for pathology. The femur was retracted anteriorly. Attention was then drawn to the acetabulum. The acetabulum labrum was excised. The pulvinar fat was excised. Sequential reaming of the acetabulum was then performed beginning with size 47 progressing up to 59. A 60 mm Biomet G7 acetabular shell was then placed in about 40 degrees of lateral opening and 20 degrees of anteversion. It was fixed with two 6.5 cancellous acetabular screws. A large anterior osteophyte was removed. A trial liner was placed. Attention was then drawn to the femur. The proximal femur was entered with Superb cutter followed by canal finder. I then broached beginning with a size 8 and progressing up to 14. We got excellent fit at 14. Calcar reamer was used to smoothen off the calcar. I then trialed the hip. The hip was fully stable with basically all trials. However, I wanted to increase the leg lengths. We elected to place a +8.5 head. It provided full stability and full extension and external rotation, flexion to 90 degrees, internal rotation to over [address] I elected to place these implants. All trial implants were removed. An apex hole eliminator was placed. Highly cross-linked polyethylene liner was placed. A DePuy Corail size 14 KLA femoral stem was impacted in position. A +8.5/36 mm articular ball was placed. Hip was located and once again found to be stable. Attention was then drawn toward closing. The wound was irrigated with copious amounts of pulsatile lavage solution. I injected locally with 60 mL of 0.5% Marcaine with epinephrine. Posterior capsule and external rotators were repaired as a single layer with #2 Ti-Cron suture through drill holes in the posterior trochanter. The IT band and gluteal fascia were then closed with #1 PDS suture in running fashion. Subcutaneous tissue was then closed with 2 layers, the deep layer with #2 Vicryl suture and subcutaneous tissue with 2-0 Dexon suture in a buried interrupted fashion. The skin was closed with skin galdino. Leg was then cleaned and dried and a sterile dressing of Xeroform, 4 x 4, sterile ABD pad and foam tape was applied. The patient then transferred to the recovery room in stable condition. The patient tolerated the procedure well with no complication. All needle and sponge counts were correct at the end of the operation. I attest to the content of the Intraoperative Record and any orders documented therein. Any exception s are noted below.
[2018-12-22] MEDS ORDERED: DOCUSATE SODIUM 100 MG CAP PO SCH (10:11)
[2018-12-22] MEDS ORDERED: MAGNESIUM HYDROXIDE SUSP 30 ML UDC PO PRN (10:11)
[2018-12-22] MEDS ORDERED: ALUMINUM/MAGNESIUM SUSP 30 ML UDC PO PRN (10:11)
[2018-12-22] MEDS ORDERED: METOCLOPRAMIDE HCL INJ 5 MG/ML 2 ML VIAL IV PRN (10:11)
[2018-12-22] MEDS ORDERED: MULTIVITAMIN TAB PO SCH (10:11)
[2018-12-22] MEDS ORDERED: TAMSULOSIN HCL 0.4 MG CAP PO PRN (10:11)
[2018-12-22] MEDS ORDERED: BISACODYL 10 MG SUPP PR PRN (10:11)
--- NOTE | 2018-12-22 10:19 | Anesthesiology Progress Note ---
Date of Service December 22, 2018 Anesthesia Post Procedure Vital Signs Vital Signs: Temp Pulse Pulse Resp BP Pulse Ox 12/22/18 09:40 36.3 C L 79 81 19 120/68 100 12/22/18 09:30 36.7 C 64 81 19 111/79 94 12/22/18 09:20 36.5 C 71 81 16 124/81 99 12/22/18 09:10 36.5 C 81 16 120/71 96 12/22/18 09:00 36.5 C 82 15 112/67 95 12/22/18 08:50 36.5 C 92 H 20 104/55 L 97 12/22/18 05:26 36.5 C 87 20 139/82 95 Pain Intensity Left Hip: Pain Intensity: 0 Transfer of Care Handoff Completed per policy Notes Mental Status: alert / awake / arousable Patient Amnestic to Procedure: Yes Nausea / Vomiting: adequately controlled Pain: adequately controlled Airway Patency, RR, SpO2: stable & adequate BP & HR: stable & adequate Hydration State: stable & adequate Anesthetic Complications: no major complications apparent
[2018-12-22] MEDS: LISINOPRIL 10 MG TAB PO SCH (11:18)
[2018-12-22] MEDS: ASPIRIN 81 MG ECTAB PO SCH ×2 (11:18→21:52)
[2018-12-22] MEDS: SODIUM CHLORIDE 0.9% 1000ML 1,000 ML IV SCH ×2 (11:28→18:33)
[2018-12-22] MEDS: ACETAMINOPHEN 500 MG TAB PO SCH ×2 (13:26→21:51)
[2018-12-22] MEDS: CEFAZOLIN 2000MG 2,000 MG/15 ML SYR IV SCH ×2 (14:20→21:52)
[2018-12-22] MEDS ORDERED: TRANEXAMIC ACID 1,000 MG in 0.9 % SODIUM CHLORIDE 100 ML IV SCH (14:49)
--- NOTE | 2018-12-22 15:17 | Progress Note ---
DATE: 12/22/2018 SUBJECTIVE: A 63-year-old gentleman postop from a left hip replacement. He is doing well. A little bit nauseated earlier today, but feeling better now. No chest pain or shortness of breath. Not feeling dizzy or lightheaded. OBJECTIVE: VITAL SIGNS: Temperature 36.3. Vital signs stable. GENERAL: Physical examination shows a pleasant, middle-aged male. He is lying in bed, looks reasonably comfortable. LUNGS: Clear to auscultation. HEART: Regular rate and rhythm. ABDOMEN: Soft, nontender, nondistended. EXTREMITIES: Grossly neurovascularly intact except as follows: Examination of the left lower extremity reveals the leg lengths to be equal. Hip is located. Dressing is clean, dry and intact. Thigh is soft and supple. He can dorsiflex and plantarflex his foot appropriately. X-RAYS: X-rays of the left hip from recovery room reviewed. It shows left uncemented total hip arthroplasty. Components looked to be in good position. No signs of problems. ASSESSMENT: A 63-year-old gentleman postop from a left hip replacement, doing well. Pain is controlled. Hip is located. He has had some nausea, but seems to be better. He is neurologically intact. PLAN: 1. DVT prophylaxis including thigh-high TEDs, SCDs, and aspirin twice a day. 2. PT/OT. Weight bear as tolerated. Left total hip protocol. 3. Pain control, doing okay with current pain regimen. 4. IV antibiotics x24 hours. 5. Disposition: He is planning to be discharged to home with some home health once adequately recovered.
[2018-12-22] MEDS: CHECK SCOPOLAMINE PATCH PLACEMENT SCH (15:26)
[2018-12-22] MEDS: FERROUS GLUCONATE 324 MG TAB PO SCH (18:05)
[2018-12-22] MEDS: ASCORBIC ACID 500 MG TAB PO SCH (18:05)
[2018-12-22] MEDS: DOCUSATE SODIUM 100 MG CAP PO SCH (18:05)
[2018-12-22] MEDS: CHOLECALCIFEROL 1,000 UNITS TAB PO SCH (21:51)
[2018-12-22] MEDS: OMEGA-3 (PURIFIED FISH OIL) 1 GM CAP PO SCH (21:51)
[2018-12-22] MEDS: MULTIVITAMIN TAB PO SCH (21:51)
[2018-12-22] MEDS: SENNA 8.6 MG TAB PO SCH (21:52)
[2018-12-23] MEDS: CHECK SCOPOLAMINE PATCH PLACEMENT SCH (00:05)
[2018-12-23] MEDS: SODIUM CHLORIDE 0.9% 1000ML 1,000 ML IV SCH (00:05)
[2018-12-23] MEDS: TRAMADOL HCL 50 MG TABLET PO PRN ×3 (03:28→18:13)
[2018-12-23] MEDS: ACETAMINOPHEN 500 MG TAB PO SCH ×3 (05:52→20:49)
[2018-12-23 06:26] LABS: Basophils # (auto) 0.03 K/uL (0-0.2); Basophils % (auto) 0.3 %; Eosinophils # (auto) 0.03 K/uL (0-0.5); Eosinophils % (auto) 0.3 %; Hematocrit (blood only) 37.6 % (42-52); Hemoglobin 12.2 g/dL (14.0-18.0); Immature Granulocytes # (auto) 0.02 K/uL (0.00-0.02); Immature Granulocytes % (auto) 0.2 %; Lymphocytes # (auto) 0.77 K/uL (1.2-3.4); Lymphocytes % (auto) 7.6 %; Mean Corpuscular Hgb Conc 32.4 g/dL (32-36); Mean Corpuscular Volume 93.1 fL (80-100); Mean Platelet Volume 9.8 fL (7.4-10.4); Monocytes % (auto) 11.9 %; Neutrophils # (auto) 8.05 K/uL (1.4-6.5); Neutrophils % (auto) 79.7 %; Platelet Count 130 K/uL (130-400); RDW Coefficient of Variation 13.9 % (11.5-14.5); RDW Standard Deviation 47.5 fL (36.4-46.3); Red Blood Count 4.04 M/uL (4.7-6.1)
[2018-12-23 06:53] LABS: BUN Creatinine Ratio 12.3 (10-20); Calcium 7.9 mg/dl (8.5-10.1); Creatinine Clr Calc Pharmacy 107.8 ml/min; Est GFR (African American) 92.9; Est GFR (Non-African American) 80.2; Potassium 3.9 mmol/L (3.5-5.1)
[2018-12-23] MEDS: HYDROmorphone INJ 0.5 MG/0.5 ML SYR IV PRN ×2 (07:36→12:19)
--- NOTE | 2018-12-23 08:12 | Progress Note ---
DATE: 12/23/2018 SUBJECTIVE: A 63-year-old gentleman postop day 1 from his left hip replacement. Have quite a bit of pain with activity. Really no pain when just lying flat in bed. No chest pain or shortness of breath. Not feeling dizzy or lightheaded. OBJECTIVE: VITAL SIGNS: Temperature 36.9. Vital signs stable. GENERAL: Physical examination shows a fairly large obese middle-aged male. He is lying in bed, looks comfortable this morning. EXTREMITIES: Examination of the left hip reveals the leg lengths to be equal. Hip is located. Dressing is clean, dry and intact. Thigh is soft and supple. He is neurologically intact. LABORATORY DATA: Hemoglobin is 12.2. Hematocrit is 37.6. Electrolytes are stable. ASSESSMENT: A 63-year-old gentleman postop day 1 from a left hip replacement, doing pretty well. Having some pain with motion and movement which is not unexpected. His hip is located. He is neurologically intact. PLAN: 1. DVT prophylaxis including thigh-high TEDs, SCDs, and aspirin twice a day. 2. PT/OT. Weight bear as tolerated. Left total hip protocol. 3. Pain control, doing okay with current pain regimen. 4. Disposition. He is planning to be discharged to home with some home health once adequately recovered and medically stable.
[2018-12-23] MEDS: LISINOPRIL 10 MG TAB PO SCH (09:38)
[2018-12-23] MEDS: ASPIRIN 81 MG ECTAB PO SCH ×2 (09:38→20:50)
[2018-12-23] MEDS: ASCORBIC ACID 500 MG TAB PO SCH ×2 (09:38→17:43)
[2018-12-23] MEDS: FERROUS GLUCONATE 324 MG TAB PO SCH ×2 (09:38→17:43)
[2018-12-23] MEDS ORDERED: COUGH DROP (SUGAR FREE) LOZ 24 LOZ/1 BOX BUCCAL PRN (12:24)
[2018-12-23] MEDS: DOCUSATE SODIUM 100 MG CAP PO SCH (17:42)
[2018-12-23] MEDS: CHOLECALCIFEROL 1,000 UNITS TAB PO SCH (20:49)
[2018-12-23] MEDS: OMEGA-3 (PURIFIED FISH OIL) 1 GM CAP PO SCH (20:49)
[2018-12-23] MEDS: MULTIVITAMIN TAB PO SCH (20:50)
[2018-12-23] MEDS: SENNA 8.6 MG TAB PO SCH (20:50)
[2018-12-24] MEDS: ACETAMINOPHEN 500 MG TAB PO SCH ×2 (05:44→13:57)
[2018-12-24] MEDS: TRAMADOL HCL 50 MG TABLET PO PRN ×2 (05:46→11:56)
[2018-12-24] MEDS: LISINOPRIL 10 MG TAB PO SCH (08:36)
[2018-12-24] MEDS: ASCORBIC ACID 500 MG TAB PO SCH (08:36)
[2018-12-24] MEDS: FERROUS GLUCONATE 324 MG TAB PO SCH (08:36)
[2018-12-24] MEDS: ASPIRIN 81 MG ECTAB PO SCH (08:36)
--- NOTE | 2018-12-24 15:18 | Progress Note ---
DATE: 12/24/2018 SUBJECTIVE: A 63-year-old gentleman postop day 2 from left hip replacement. He is doing quite a bit better today. Pain is better. Therapy went much better. No chest pain or shortness of breath. Not feeling dizzy or lightheaded. OBJECTIVE: VITAL SIGNS: Temperature 36.6. Vital signs stable. GENERAL: Shows a pleasant, middle-aged male. He is sitting up in his bedside chair, looks pretty comfortable. EXTREMITIES: Examination of left hip reveals the dressing to be clean, dry and intact. Hip is located. Thigh is soft and supple. NEUROLOGIC: He is neurologically intact. ASSESSMENT: A 63-year-old gentleman postop day 2 from a left hip replacement, doing much better. PLAN: 1. DVT prophylaxis including thigh-high TEDs, SCDs, and aspirin twice a day. 2. PT/OT. Weight bear as tolerated. Left total hip protocol. 3. Pain control, doing well with current pain regimen. 4. Disposition. We are going to plan on discharging him to home with some home health. I did much better in therapy today.
--- NOTE | 2018-12-28 15:35 | Discharge Summary ---
ADMITTING PHYSICIAN AND SURGEON: Dr. Varghese Blair. ADMITTING DIAGNOSIS: Left hip degenerative joint disease. SURGERY PERFORMED: Left total hip arthroplasty. SECONDARY DIAGNOSES: Hypertension, low back pain, obesity, kidney stones, benign prostatic hypertrophy. CONSULTS: None obtained. HISTORY AND PHYSICAL EXAMINATION: Well documented in the patient's chart. HOSPITAL COURSE: The patient was admitted on 12/22/2018, underwent total hip arthroplasty, tolerated the procedure well. There were no complications. He was transferred to the PACU postoperatively and later to the orthopedic floor for further care. He was given Ancef for antibiotic prophylaxis, RAMANA stockings, SCDs and aspirin for DVT prophylaxis. Hemoglobin, hematocrit and vital signs were monitored during his hospital stay and remained stable, did not require any blood transfusions. There were no complications. By postoperative day 2, he was tolerating a regular diet, pain was controlled with oral pain medicine. He was participating in physical therapy. Postop day 2, he was discharged home, set up with home health services, given printed discharge instructions including new prescriptions for extra-strength Tylenol, aspirin and tramadol. Continue his home medicines with the exception of his home dose of Tylenol. Continue physical therapy, weightbearing as tolerated, RAMANA stockings, total hip precautions. Follow up approximately 2 weeks postop or sooner if there are any problems or concerns.
== END 2018-12-24 15:16 | disposition home health service (06) | DRG 470 ==
LOC: ASU 04:46 → 3E 08:49

== ENCOUNTER 2021-03-04 23:26 | Observation (INO) ==
[2021-03-04] MEDS ORDERED: diphenhydrAMINE 50 MG/ML VIAL IV STA (23:49)
[2021-03-04] MEDS ORDERED: ACETAMINOPHEN 1,000 MG/100 ML VIAL IV STA (23:49)
[2021-03-04] MEDS ORDERED: FAMOTIDINE 20MG IV PUSH 20 MG/5 ML SYR IV STA (23:49)
[2021-03-04] MEDS ORDERED: SODIUM CHLORIDE 0.9% 1000ML 1,000 ML IV ONE (23:50)
[2021-03-05 00:20] LABS: Basophils # (auto) 0.02 K/uL (0-0.2); Basophils % (auto) 0.2 %; Eosinophils # (auto) 0.04 K/uL (0-0.5); Eosinophils % (auto) 0.5 %; Hematocrit (blood only) 45.8 % (42-52); Hemoglobin 15.5 g/dL (14.0-18.0); Immature Granulocytes # (auto) 0.02 K/uL (0.00-0.02); Immature Granulocytes % (auto) 0.2 %; Lymphocytes # (auto) 0.92 K/uL (1.2-3.4); Lymphocytes % (auto) 11.2 %; Mean Corpuscular Hemoglobin 31.1 pg (25-34); Mean Corpuscular Hgb Conc 33.8 g/dL (32-36); Mean Corpuscular Volume 91.8 fL (80-100); Mean Platelet Volume 10.1 fL (7.4-10.4); Monocytes # (auto) 0.91 K/uL (0.11-0.59); Monocytes % (auto) 11.1 %; Neutrophils % (auto) 76.8 %; Platelet Count 182 K/uL (130-400); RDW Coefficient of Variation 13.8 % (11.5-14.5); RDW Standard Deviation 46.4 fL (36.4-46.3); Red Blood Count 4.99 M/uL (4.7-6.1); White Blood Count 8.21 K/uL (4.8-10.8)
[2021-03-05 00:34] LABS: iSTAT Creatinine 0.9 mg/dl (0.6-1.3); iSTAT Hemoglobin 16.3 g/dl (14.0-18.0); iSTAT Ionized Calcium 1.2 mmol/l (1.12-1.32); iSTAT Potassium 3.6 mmol/L (3.3-5.0)
[2021-03-05 00:39] LABS: Albumin Level 3.5 gm/dl (3.4-5.0); BUN Creatinine Ratio 11.8 (10-20); Bilirubin Direct 0.3 mg/dl (0-0.2); Calcium 9.3 mg/dl (8.5-10.1); Est GFR (African American) 88.4 ml/min; Est GFR (Non-African American) 76.2 ml/min; Potassium 3.7 mmol/L (3.5-5.1)
[2021-03-05] MEDS ORDERED: OPTIRAY 320 100ml IV ONE (00:39)
[2021-03-05 00:42] LABS: Albumin Globulin Ratio 0.9 (0.9-2); Globulin 3.9 gm/dl (2.5-4.0); Total Protein 7.4 gm/dl (6.4-8.2)
[2021-03-05 01:54] LABS: Appearance Urine Clear (Clear); Bacteria Urine Automated Negative (Negative); Bilirubin Urine Negative (Negative); Blood Urine Trace (Negative); Color Urine Yellow; Glucose Urine UA Negative (Negative); Ketones Urine Trace (Negative); Leukocyte Esterase Urine Negative (Negative); Nitrite Urine Negative (Negative); Protein Urine Negative (Negative); Specific Gravity Urine 1.036 (1.000-1.030); Urobilinogen Urine Negative (Negative); pH Urine 6.5 (4.5-7.5)
[2021-03-05] MEDS ORDERED: MoRPHine SULFATE 4 MG/ML 1 ML CARP\\VIAL IV STA (02:01)
[2021-03-05] MEDS ORDERED: LACTATED RINGER'S 1,000 ML IV ONE (02:05)
--- NOTE | 2021-03-05 03:01 | History & Physical Report ---
Date of Service March 05, 2021 Assessment & Plan (1) Acute pancreatitis: Plan: Admit to medical surgical floor NPO Status post 1 L normal saline and 1 L LR in the ED Continue LR at 125 mL's per hour x2 L Zofran 4 mg IV every 6 hours as needed Famotidine 20 mg IV every 12 hours Acetaminophen 1000 mg IV every 8 hours as needed mild pain or fever Morphine sulfate 4 mg IV every 3 hours as needed severe pain Follow serial CBC with differential, chemistry profile and lipase levels (2) BPH w urinary obs/LUTS: Plan: Continue tamsulosin 0.4 mg at bedtime (3) HTN (hypertension): Plan: Hold lisinopril (4) Gout: Plan: Colchicine is only used as needed gout symptoms, which he last used for 2 days 1 week ago History of Present Illness Chief Complaint: The patient presents to the emergency department with complaint of being awoken at 3 AM today morning to urinate, and then realized that he had severe left sided abdominal discomfort. Primary Care Provider: Da Jade MD The patient is a 65-year-old male with a past medical history including lumbar DJD, left shoulder rotator cuff syndrome, gout, hypertension, BPH with LUTS and morbid obesity. He presents with symptoms as noted above. As the day progressed he had intermittent issues with fevers and due to the persistence of the discomfort, he presents to the ED for assessment. Significant abnormal laboratories: Lipase 2985, COVID-[address] scan of abdomen and pelvis with contrast: Acute pancreatitis. Mild inflammatory changes around the tail of the pancreas. Allergies Allergy/AdvReac Type Severity Reaction Status Date / Time adhesive tape Allergy Mild SKIN Verified 03/05/21 01:22 IRRITATION Home Medications Medication Instructions Recorded Confirmed Type cholecalciferol (vitamin D3) 50 2,000 unit PO QPM 04/14/18 03/05/21 History mcg (2,000 unit) tablet (Vitamin D3) glucosamine-chondroitin 250 mg-200 2 tab PO QPM 04/14/18 03/05/21 History mg tablet (Osteo Bi-Flex) multivitamin 1 tab PO QPM 04/14/18 03/05/21 History docusate sodium 100 mg capsule 200 mg PO QDD 11/25/18 03/05/21 History (Colace) lisinopril 10 mg tablet 10 mg PO QAM 11/25/18 03/05/21 History omega 8-ojw-bda-fish oil 60 mg-90 1 cap PO QPM 11/25/18 03/05/21 History mg-500 mg capsule (Fish Oil) tamsulosin 0.4 mg capsule 0.4 mg PO PM 08/26/19 03/05/21 History colchicine 0.6 mg tablet 0.6 mg PO QAM PRN 04/30/20 03/05/21 History Past Med/Surg History Medical History (Updated 03/05/21 @ 03:46 by Roland Erickson MD) BPH w urinary obs/LUTS DJD (degenerative joint disease) Gout History of kidney stones HTN (hypertension) Obesity Prediabetes Surgical History History of left hip replacement History of open reduction and internal fixation (ORIF) procedure RIGHT ARM AND ANKLE Family History Brother Family history of diabetes mellitus Social History Smoking Status: Never smoker Second Hand Exposure: Yes (LONG TIME AGO - 1977); Hx Alcohol Use: Yes Alcohol type: beer and hard liquor Hx Substance Use: No Preferred Language: Portuguese Communication Ability: Effective Visual Impairment: No Limitations Beliefs That Will Affect Care: None Current Living Situation: Spouse Feels Safe at Home: Yes Assistive Devices: Walker Review of Systems Review of Systems: The patient denies chest pain, palpitations, shortness of breath, dyspnea on exertion, cough, lower extremity swelling, sore throat, chills, sweats, vomiting, blood in urine or stool, dysuria, urinary frequency or urgency, lightheadedness, dizziness, headache, memory loss, loss of consciousness, rash, abnormal bruising or bleeding, imbalance, focal or generalized weakness, numbness or tingling in arms or legs, generalized arthralgias or myalgias, back or neck pain, or night sweats. The review of systems is otherwise negative other than for that already noted above, and at least 10 systems have been reviewed. Physical Exam Physical Exam: The patient is awake, alert and oriented 3, well developed and well nourished, normocephalic and atraumatic, lying in bed and in no acute distress. HEENT--PERRL, EOMI, mucous membranes and oropharynx mildly dry. Neck--supple. No JVD. No bruits. Thyroid normal, trachea midline, no adenopathy. Heart--normal S1 and S2. No murmurs, rubs or gallops. Lungs--clear bilaterally, no respiratory distress, no accessory muscle use. Abdomen--normal bowel sounds and soft. Nontender. Nondistended. Morbidly obese Extremities--no cyanosis or clubbing. No edema. Dermatologic--normal skin turgor, normal color, no abnormal lymph nodes, no rash. Neurologic--cranial nerves II through XII grossly intact. Rheumatologic--limited exam due to left-sided abdominal pain Psychiatric--normal affect. Results & Data Results & Data ([facility]) Vital Signs (Past 12 Hours) Vital Signs Temp Pulse Pulse Resp BP BP Pulse Ox 03/05/21 02:00 91 H 24 149/64 H 97 03/05/21 01:30 82 18 132/87 96 03/05/21 01:00 83 19 125/75 97 03/05/21 00:56 88 20 137/85 97 03/04/21 23:30 100 F H 98 H 20 134/103 H 94 Laboratory Results Laboratory Results WBC 8.21 K/uL (4.8-10.8) 03/05/21 00:05 RBC 4.99 M/uL (4.7-6.1) 03/05/21 00:05 Hgb 15.5 g/dL (14.0-18.0) 03/05/21 00:05 POC Hgb 16.3 g/dl (14.0-18.0) 03/05/21 00:17 Hct 45.8 % (42-52) 03/05/21 00:05 POC Hct 48 % (42-52) 03/05/21 00:17 MCV 91.8 fL (80-100) 03/05/21 00:05 MCH 31.1 pg (25-34) 03/05/21 00:05 MCHC 33.8 g/dL (32-36) 03/05/21 00:05 RDW Std Deviation 46.4 fL (36.4-46.3) H 03/05/21 00:05 RDW Coeff of Cuate 13.8 % (11.5-14.5) 03/05/21 00:05 Plt Count 182 K/uL (130-400) 03/05/21 00:05 MPV 10.1 fL (7.4-10.4) 03/05/21 00:05 Immature Gran % (Auto) 0.2 % 03/05/21 00:05 Neut % (Auto) 76.8 % 03/05/21 00:05 Lymph % (Auto) 11.2 % 03/05/21 00:05 Tyler % (Auto) 11.1 % 03/05/21 00:05 Eos % (Auto) 0.5 % 03/05/21 00:05 Baso % (Auto) 0.2 % 03/05/21 00:05 Neut # (Auto) 6.30 K/uL (1.4-6.5) 03/05/21 00:05 Lymph # (Auto) 0.92 K/uL (1.2-3.4) L 03/05/21 00:05 Tyler # (Auto) 0.91 K/uL (0.11-0.59) H 03/05/21 00:05 Eos # (Auto) 0.04 K/uL (0-0.5) 03/05/21 00:05 Baso # (Auto) 0.02 K/uL (0-0.2) 03/05/21 00:05 Immature Gran # (Auto) 0.02 K/uL (0.00-0.02) 03/05/21 00:05 POC Sodium 141 mmol/L (135-144) 03/05/21 00:17 Sodium 140 mmol/L (136-145) 03/05/21 00:05 POC Potassium 3.6 mmol/L (3.3-5.0) 03/05/21 00:17 Potassium 3.7 mmol/L (3.5-5.1) 03/05/21 00:05 POC Chloride 104 mmol/L (101-112) 03/05/21 00:17 Chloride 109 mmol/L (98-107) H 03/05/21 00:05 Carbon Dioxide 25 mmol/L (21-32) 03/05/21 00:05 POC Total CO2 23 mmol/L (24-31) L 03/05/21 00:17 Anion Gap 6.0 (3-11) 03/05/21 00:05 POC Anion Gap 18.0 mmol/L (16-25) 03/05/21 00:17 POC BUN 12 mg/dl (7-18) 03/05/21 00:17 BUN 12 mg/dl (7-18) 03/05/21 00:05 Creatinine 1.02 mg/dl (0.6-1.4) 03/05/21 00:05 POC Creatinine 0.9 mg/dl (0.6-1.3) 03/05/21 00:17 Est Cr Clr Drug Dosing 99.0 ml/min 03/05/21 00:05 Est GFR ( Amer) 88.4 ml/min 03/05/21 00:05 Est GFR (Non-Af Amer) 76.2 ml/min 03/05/21 00:05 BUN/Creatinine Ratio 11.8 (10-20) 03/05/21 00:05 Glucose 100 mg/dl (70-99) H 03/05/21 00:05 POC Glucose (other) 99 mg/dl (70-99) 03/05/21 00:17 Calcium 9.3 mg/dl (8.5-10.1) 03/05/21 00:05 POC Ioniz Calcium Elisha 1.20 mmol/l (1.12-1.32) 03/05/21 00:17 Total Bilirubin 1.0 mg/dl (0.2-1) 03/05/21 00:05 Direct Bilirubin 0.3 mg/dl (0-0.2) H 03/05/21 00:05 AST 17 U/L (15-37) 03/05/21 00:05 ALT 23 U/L (12-78) 03/05/21 00:05 Alkaline Phosphatase 61 U/L (45-117) 03/05/21 00:05 Total Protein 7.4 gm/dl (6.4-8.2) 03/05/21 00:05 Albumin 3.5 gm/dl (3.4-5.0) 03/05/21 00:05 Globulin 3.9 gm/dl (2.5-4.0) 03/05/21 00:05 Albumin/Globulin Ratio 0.9 (0.9-2) 03/05/21 00:05 Lipase 2985 U/L (73-393) H 03/05/21 00:05 Urine Color Yellow 03/05/21 00:47 Urine Appearance Clear (Clear) 03/05/21 00:47 Urine pH 6.5 (4.5-7.5) 03/05/21 00:47 Ur Specific [place] 1.036 (1.000-1.030) H 03/05/21 00:47 Urine Protein Negative (Negative) 03/05/21 00:47 Urine Glucose (UA) Negative (Negative) 03/05/21 00:47 Urine Ketones Trace (Negative) H 03/05/21 00:47 Urine Blood Trace (Negative) H 03/05/21 00:47 Urine Nitrite Negative (Negative) 03/05/21 00:47 Urine Bilirubin Negative (Negative) 03/05/21 00:47 Urine Urobilinogen Negative (Negative) 03/05/21 00:47 Ur Leukocyte Esterase Negative (Negative) 03/05/21 00:47 Urine WBC (Auto) 1-5 /hpf (0-5) 03/05/21 00:47 Urine RBC (Auto) 5-10 /hpf (0-4) H 03/05/21 00:47 U Hyaline Cast (Auto) 1-5 /lpf (0-5) 03/05/21 00:47 U Epithel Cells (Auto) 5-10 /lpf (0-5) H 03/05/21 00:47 Urine Bacteria (Auto) Negative (Negative) 03/05/21 00:47 COVID-19 Eval Order Covid19 at [facility] 03/05/21 00:55 SARS-CoV-2 (PCR) NEGATIVE (Negative) 03/05/21 00:55 Diagnostic Findings [facility] Patient: YIN BROOKS (Male) : 53 Status: ER Date: 03/05/21 00:41 Room #: History: PAIN AT LLQ, MID ABD Slices: [phone] Priors: Tech: Lalit Urena @ [phone] Exams: CT ABDOMEN & PELVIS With Contrast Contrast: IV Amt: 93 ML OPTIRAY 320 Accession Numbers: [id number] Referring Physician: REFERRED SELF Preliminary Findings Only See Final Report For Complete Findings CT ABDOMEN & PELVIS With Contrast: Acute pancreatitis. Mild inflammatory changes around the tail of the pancreas. No necrosis, fluid collection, or obstructing stone. Unremarkable appearance of the GI tract and remainder of the organs. Radiologist: Tyler Crook MD Study ready at 00:51 and initial results transmitted at 00:54 *This report constitutes a preliminary interpretation only. Non-acute findings felt to be unrelated to the clinical presentation may not be discussed in this report. The study will be interpreted and a final report will be generated by the local Radiologist the following shift. To reach the hospital radiology department call [phone]. If a discrepancy is found between the preliminary and final interpretations of this study, please notify us via our Client Portal at [email or web address].You can also fax this report with a description of the discrepancy, or include the final report, to our daytime fax number [phone].If faxing, please indicate the severity of discrepancy using one of the following categories: [ ] 1 - Agree/Informational [ ] 2 - Unlikely to Affect Management [ ] 3 - Possible Eventual Change of Management [ ] 4 - Probable Immediate Change of Management For all other patient related information, please fax us at [phone]. [id number] Code Status & VTE Plan Code Status Full code VTE Prophylaxis Plan VTE Prophylaxis will be ordered: Yes PG Care Time/CCT Total # of Minutes Spent Total Time Spent with Patient: Total time spent is greater than 50% in coordin ation of care (as documented) at patient's floor/unit and/or counseling patient: Coding Level of Care Code 11695 Initial Inpt Care Lvl 2 Diagnoses Acute pancreatitis K85.90 BPH w urinary obs/LUTS N40.1; N13.8 HTN (hypertension) I10 Gout M10.9
[2021-03-05] MEDS ORDERED: MoRPHine SULFATE 4 MG/ML 1 ML CARP\\VIAL IV PRN (03:25)
[2021-03-05] MEDS ORDERED: ACETAMINOPHEN 1,000 MG/100 ML VIAL IV PRN (03:25)
[2021-03-05] MEDS ORDERED: ONDANSETRON INJ 2 MG/ML 2 ML VIAL IV PRN (03:25)
--- NOTE | 2021-03-05 03:25 | Emergency Department Note ---
Impression & Plan Acute pancreatitis, Abdominal pain, Dehydration ED Provider Note NAME: YIN BROOKS AGE: 65 SEX: M ARRIVES VIA: Ambulance INFORMANT: Patient, ED PROVIDER(S): Carlos Hicks MD CHIEF COMPLAINT: Abdominal pain PLAN: Disposition: Admit MEDICAL DECISION MAKING: The patient is a pleasant 65-year-old gentleman with a past medical history of gout, hypertension, who presents to the emergency department for evaluation of worsening abdominal pain that he reports began abruptly today. He reports he did not move his bowels yet today but has been moving them daily and at times, 2-3 times a day since he reports an attempt to improve his diet. He reports feeling feverish today but denies any known objective fevers. He reports feeling nauseated but denies vomiting. He denies any cough, congestion, chest pain, shortness of breath. He denies urinary symptoms. He denies any frequent or recent alcohol consumption. On arrival patient uncomfortable but no acute distress, with temperature of 37.7 and otherwise with stable vital signs. He appears clinically dry. He has mild epigastric as well as left sided greater than right abdominal pain. There is no guarding or rebound. WBC, H/H and platelets within normal limits. Chemistry without metabolic acidosis. Electrolytes LFTs without significant abnormality. Lipase is elevated at 2900. UA without convincing evidence of infection. COVID-[address] of the abdomen pelvis was performed and per preliminary stat rad report demonstrates acute pancreatitis with mild inflammatory changes around the tail of the pancreas. No necrosis, fluid collection or obstructing stone is a ppreciated. Upon reevaluation patient did feel somewhat improved after IV fluid hydration, APAP, famotidine, diphenhydramine. However his pain still did persist. Given his acute pancreatitis the patient was ultimately agreeable to plan for admission though he did express concern that his son is getting this Thursday in [place]. Case was discussed with Dr. Erickson, [facility] hospitalist, who will evaluate the patient for admission. Triage Nursing notes reviewed and agree them. Prior medical records reviewed Vital Signs: reviewed and remarkable for no significant abnormalities Differential diagnosis: Appendicitis, testicular torsion, infections, diverticulitis, UTI, obstruction, mesenteric ischemia, aortic pathology, inflammatory bowel disease, renal colic, PUD, pancreatitis, biliary pathology, hernia, volvulus, constipation, as well as other pathologies. ER treatment provided: See below. Diagnostics interpreted by me: Cardiac Monitoring: An order for continuous cardiac monitoring was placed and demonstrated normal sinus rhythm, 91 bpm, no ectopy. Laboratory studies: See below Imaging studies: [facility] Preliminary Findings Only See Final Report For Complete Findings CT ABDOMEN & PELVIS With Contrast: Acute pancreatitis. Mild inflammatory changes around the tail of the pancreas. No necrosis, fluid collection, or obstructing stone. Unremarkable appearance of the GI tract and remainder of the organs. Radiologist: Tyler Crook MD Study ready at 00:51 and initial results transmitted at 00:54 Consultation(s): Case was discussed with Dr. Erickson, [facility] hospitalist, who will evaluate the patient for admission. HPI: The patient is a pleasant 65-year-old gentleman with a past medical history of gout, hypertension, who presents to the emergency department for evaluation of worsening abdominal pain that he reports began abruptly today. He reports he did not move his bowels yet today but has been moving them daily and at times, 2-3 times a day since he reports an attempt to improve his diet. He reports feeling feverish today but denies any known objective fevers. He reports feeling nauseated but denies vomiting. He denies any cough, congestion, chest pain, shortness of breath. He denies urinary symptoms. He denies any frequent or recent alcohol consumption. ROS: See above HPI for pertinent positives & negatives. A total of 10 systems reviewed and were otherwise negative. PAST MEDICAL HISTORY:See Below PAST SURGICAL HISTORY:See Below FAMILY HISTORY:See Below SOCIAL HISTORY:See Below HOME MEDICATIONS:See Below ALLERGIES:See Below VITALS:See Below PHYSICAL EXAMINATION: GENERAL: Awake, alert, uncomfortable-appearing, in no distress HENT: Normocephalic, atraumatic. Oropharynx with dry mucous membranes and otherwise unremarkable. EYES: Normal conjunctiva. Sclera non-icteric. NECK: Supple. No nuchal rigidity. FROM. No JVD. RESPIRATORY: Clear to auscultation. CARDIAC: Regular rate, normal rhythm. Extremities warm and well perfused. Pulses equal. ABDOMEN: Soft, non-distended. Mild epigastric as well as left sided greater than right abdominal pain. There is no guarding or rebound. No masses. RECTAL: Deferred. MUSCULOSKELETAL: Chest examination reveals no tenderness. The back is symmetrical on inspection without obvious abnormality. There is no CVA tenderness to palpation. No joint edema. LOWER EXTREMITIES: Calves are equal size bilaterally and non-tender. No edema. No discoloration. NEURO: Normal sensorium. No sensory or motor deficits noted. SKIN: No rash or jaundice noted. Carlos Hicks MD Past Med/Surg History Medical History BPH w urinary obs/LUTS DJD (degenerative joint disease) Gout History of kidney stones HTN (hypertension) Obesity Prediabetes Surgical History History of left hip replacement History of open reduction and internal fixation (ORIF) procedure RIGHT ARM AND ANKLE Family History Brother Family history of diabetes mellitus Social History Smoking Status: Never smoker Second Hand Exposure: Yes (LONG TIME AGO - 1977); Hx Alcohol Use: No Hx Substance Use: No Preferred Language: Cuban Communication Ability: Effective Visual Impairment: No Limitations Sisal Operator Required: No Beliefs That Will Affect Care: None Current Living Situation: Spouse Feels Safe at Home: Yes Assistive Devices: None Allergies Allergies Allergy/AdvReac Type Severity Reaction Status Date / Time adhesive tape Allergy Mild SKIN Verified 03/05/21 01:22 IRRITATION Home Meds Home Medications Medication Instructions Recorded Confirmed cholecalciferol (vitamin D3) 50 2,000 unit PO QPM 04/14/18 03/05/21 mcg (2,000 unit) tablet (Vitamin D3) glucosamine-chondroitin 250 mg-200 2 tab PO QPM 04/14/18 03/05/21 mg tablet (Osteo Bi-Flex) multivitamin 1 tab PO QPM 04/14/18 03/05/21 docusate sodium 100 mg capsule 200 mg PO QDD 11/25/18 03/05/21 (Colace) lisinopril 10 mg tablet 10 mg PO QAM 11/25/18 03/05/21 omega 4-tmh-bpm-fish oil 60 mg-90 1 cap PO QPM 11/25/18 03/05/21 mg-500 mg capsule (Fish Oil) tamsulosin 0.4 mg capsule 0.4 mg PO PM 08/26/19 03/05/21 colchicine 0.6 mg tablet 0.6 mg PO QAM PRN 04/30/20 03/05/21 Results & Data (ED) Vital Signs Vital Signs - 24 hr 03/04/21 23:30 03/05/21 00:56 03/05/21 01:00 Temperature 37.7 C H Temperature Source Oral Pulse Rate 98 H 83 Pulse Rate [Apical] 88 Pulse Rate from SpO2 Sensor 82 Respiratory Rate 20 20 19 Blood Pressure 134/103 H 125/75 Blood Pressure [Right Arm] 137/85 Blood Pressure Mean 113 91 Blood Pressure Mean [Right Arm] 102 Blood Pressure Position [Right Arm] Lying Pulse Oximetry 94 97 97 Oxygen Delivery Method Room Air Room Air Sepsis Recent Fever Within 48 Hours Yes Sepsis New/Unexplained Change in Mental Status No Sepsis Action Taken by Nursing No Action Required 03/05/21 01:30 03/05/21 02:00 Temperature Temperature Source Pulse Rate 82 91 H Pulse Rate [Apical] Pulse Rate from SpO2 Sensor 81 88 Respiratory Rate 18 24 Blood Pressure 132/87 149/64 H Blood Pressure [Right Arm] Blood Pressure Mean 102 92 Blood Pressure Mean [Right Arm] Blood Pressure Position [Right Arm] Pulse Oximetry 96 97 Oxygen Delivery Method Sepsis Recent Fever Within 48 Hours Sepsis New/Unexplained Change in Mental Status Sepsis Action Taken by Nursing Laboratory Data Attestation: I reviewed the patient's lab results. Result diagrams: 03/05/21 00:05 03/05/21 00:05 Lab Results 03/05/21 03/05/21 03/05/21 Range/Units 00:05 00:05 00:17 WBC 8.21 (4.8-10.8) K/uL RBC 4.99 (4.7-6.1) M/uL Hgb 15.5 (14.0-18.0) g/dL POC Hgb 16.3 (14.0-18.0) g/dl Hct 45.8 (42-52) % POC Hct 48 (42-52) % MCV 91.8 (80-100) fL MCH 31.1 (25-34) pg MCHC 33.8 (32-36) g/dL RDW Std Deviation 46.4 H (36.4-46.3) fL RDW Coeff of Cuate 13.8 (11.5-14.5) % Plt Count 182 (130-400) K/uL MPV 10.1 (7.4-10.4) fL Immature Gran % (Auto) 0.2 % Neut % (Auto) 76.8 % Lymph % (Auto) 11.2 % Coles % (Auto) 11.1 % Eos % (Auto) 0.5 % Baso % (Auto) 0.2 % Neut # (Auto) 6.30 (1.4-6.5) K/uL Lymph # (Auto) 0.92 L (1.2-3.4) K/uL Coles # (Auto) 0.91 H (0.11-0.59) K/uL Eos # (Auto) 0.04 (0-0.5) K/uL Baso # (Auto) 0.02 (0-0.2) K/uL Immature Gran # (Auto) 0.02 (0.00-0.02) K/uL POC Sodium 141 (135-144) mmol/L Sodium 140 (136-145) mmol/L POC Potassium 3.6 (3.3-5.0) mmol/L Potassium 3.7 (3.5-5.1) mmol/L POC Chloride 104 (101-112) mmol/L Chloride 109 H (98-107) mmol/L Carbon Dioxide 25 (21-32) mmol/L POC Total CO2 23 L (24-31) mmol/L Anion Gap 6.0 (3-11) POC Anion Gap 18.0 (16-25) mmol/L POC BUN 12 (7-18) mg/dl BUN 12 (7-18) mg/dl Creatinine 1.02 (0.6-1.4) mg/dl POC Creatinine 0.9 (0.6-1.3) mg/dl Est Cr Clr Drug Dosing 99.0 ml/min Est GFR ( Amer) 88.4 ml/min Est GFR (Non-Af Amer) 76.2 ml/min BUN/Creatinine Ratio 11.8 (10-20) Glucose 100 H (70-99) mg/dl POC Glucose (other) 99 (70-99) mg/dl Calcium 9.3 (8.5-10.1) mg/dl POC Ioniz Calcium Elisha 1.20 (1.12-1.32) mmol/l Total Bilirubin 1.0 (0.2-1) mg/dl Direct Bilirubin 0.3 H (0-0.2) mg/dl AST 17 (15-37) U/L ALT 23 (12-78) U/L Alkaline Phosphatase 61 (45-117) U/L Total Protein 7.4 (6.4-8.2) gm/dl Albumin 3.5 (3.4-5.0) gm/dl Globulin 3.9 (2.5-4.0) gm/dl Albumin/Globulin Ratio 0.9 (0.9-2) Lipase 2985 H (73-393) U/L Urine Color Urine Appearance (Clear) Urine pH (4.5-7.5) Ur Specific [place] (1.000-1.030) Urine Protein (Negative) Urine Glucose (UA) (Negative) Urine Ketones (Negative) Urine Blood (Negative) Urine Nitrite (Negative) Urine Bilirubin (Negative) Urine Urobilinogen (Negative) Ur Leukocyte Esterase (Negative) Urine WBC (Auto) (0-5) /hpf Urine RBC (Auto) (0-4) /hpf U Hyaline Cast (Auto) (0-5) /lpf U Epithel Cells (Auto) (0-5) /lpf Urine Bacteria (Auto) (Negative) COVID-19 Eval Order SARS-CoV-2 (PCR) (Negative) 03/05/21 03/05/21 03/05/21 Range/Units 00:47 00:55 00:55 WBC (4.8-10.8) K/uL RBC (4.7-6.1) M/uL Hgb (14.0-18.0) g/dL POC Hgb (14.0-18.0) g/dl Hct (42-52) % POC Hct (42-52) % MCV (80-100) fL MCH (25-34) pg MCHC (32-36) g/dL RDW Std Deviation (36.4-46.3) fL RDW Coeff of Cuate (11.5-14.5) % Plt Count (130-400) K/uL MPV (7.4-10.4) fL Immature Gran % (Auto) % Neut % (Auto) % Lymph % (Auto) % Coles % (Auto) % Eos % (Auto) % Baso % (Auto) % Neut # (Auto) (1.4-6.5) K/uL Lymph # (Auto) (1.2-3.4) K/uL Coles # (Auto) (0.11-0.59) K/uL Eos # (Auto) (0-0.5) K/uL Baso # (Auto) (0-0.2) K/uL Immature Gran # (Auto) (0.00-0.02) K/uL POC Sodium (135-144) mmol/L Sodium (136-145) mmol/L POC Potassium (3.3-5.0) mmol/L Potassium (3.5-5.1) mmol/L POC Chloride (101-112) mmol/L Chloride (98-107) mmol/L Carbon Dioxide (21-32) mmol/L POC Total CO2 (24-31) mmol/L Anion Gap (3-11) POC Anion Gap (16-25) mmol/L POC BUN (7-18) mg/dl BUN (7-18) mg/dl Creatinine (0.6-1.4) mg/dl POC Creatinine (0.6-1.3) mg/dl Est Cr Clr Drug Dosing ml/min Est GFR ( Amer) ml/min Est GFR (Non-Af Amer) ml/min BUN/Creatinine Ratio (10-20) Glucose (70-99) mg/dl POC Glucose (other) (70-99) mg/dl Calcium (8.5-10.1) mg/dl POC Ioniz Calcium Elisha (1.12-1.32) mmol/l Total Bilirubin (0.2-1) mg/dl Direct Bilirubin (0-0.2) mg/dl AST (15-37) U/L ALT (12-78) U/L Alkaline Phosphatase (45-117) U/L Total Protein (6.4-8.2) gm/dl Albumin (3.4-5.0) gm/dl Globulin (2.5-4.0) gm/dl Albumin/Globulin Ratio (0.9-2) Lipase (73-393) U/L Urine Color Yellow Urine Appearance Clear (Clear) Urine pH 6.5 (4.5-7.5) Ur Specific [place] 1.036 H (1.000-1.030) Urine Protein Negative (Negative) Urine Glucose (UA) Negative (Negative) Urine Ketones Trace H (Negative) Urine Blood Trace H (Negative) Urine Nitrite Negative (Negative) Urine Bilirubin Negative (Negative) Urine Urobilinogen Negative (Negative) Ur Leukocyte Esterase Negative (Negative) Urine WBC (Auto) 1-5 (0-5) /hpf Urine RBC (Auto) 5-10 H (0-4) /hpf U Hyaline Cast (Auto) 1-5 (0-5) /lpf U Epithel Cells (Auto) 5-10 H (0-5) /lpf Urine Bacteria (Auto) Negative (Negative) COVID-19 Eval Order Covid19 at [facility] [place] SARS-CoV-2 (PCR) NEGATIVE (Negative) Administered Medications Lactated Ringer's (Lr) 1,000 mls @ 125 mls/hr IV .Q8H VANESSA Stop: 03/05/21 19:24 Last Admin: 03/05/21 04:50 Dose: 125 mls/hr Documented by: [id number] Discontinued Medications Diphenhydramine HCl (Diphenhydramine 50 Mg/Ml Vial) 25 mg IV NOW STA Stop: 03/04/21 23:50 Last Admin: 03/05/21 00:50 Dose: 25 mg Documented by: [id number] Famotidine (Pepcid 20mg Iv Push) 20 mg in 5 mls @ 2.5 mls/min IV NOW STA Stop: 03/04/21 23:50 Last Admin: 03/05/21 00:49 Dose: 2.5 mls/min Documented by: [id number] Acetaminophen (Ofirmev) 1,000 mg in 100 mls @ 400 mls/hr IV NOW STA Stop: 03/05/21 00:03 Last Infusion: 03/05/21 01:19 Dose: 0 mls/hr Documented by: [id number] Admin: 03/05/21 00:49 Dose: 400 mls/hr Documented by: [id number] Sodium Chloride (Nss 1000ml) 1,000 mls @ 999 mls/hr IV .Q1H1M ONE Stop: 03/05/21 00:50 Last Infusion: 03/05/21 01:51 Dose: 0 mls/hr Documented by: [id number] Admin: 03/05/21 00:48 Dose: 999 mls/hr Documented by: [id number] Lactated Ringer's (Lr) 1,000 mls @ 999 mls/hr IV .Q1H1M ONE Stop: 03/05/21 03:05 Last Infusion: 03/05/21 03:45 Dose: 0 mls/hr Documented by: [id number] Admin: 03/05/21 02:38 Dose: 999 mls/hr Documented by: [id number] Ioversol (Optiray 320 100ml) 100 ml IV ONCE ONE Stop: 03/05/21 00:40 Last Admin: 03/05/21 00:39 Dose: 93 ml Documented by: [id number] Morphine Sulfate (Morphine Sulfate 4 Mg/Ml 1 Ml Carp\Vial) 4 mg IV NOW STA Stop: 03/05/21 02:02 Last Admin: 03/05/21 02:06 Dose: 4 mg Documented by: [id number] Discharge Plan Visit Data Chief Complaint: Abdominal Pain Stated Complaint: ABDOMINAL PAIN Discharge Problem: Acute pancreatitis, Abdominal pain, Dehydration Patient Disposition: Admitted As Inpatient Discharge Instructions Interventions: ED Discharge Assessment Last Done: 03/05/21 03:17 Discharge Problem: Acute pancreatitis Qualifiers: Pancreatitis type: unspecified pancreatitis type Acute pancreatitis complication: unspecified Qualified Code(s): K85.90 - Acute pancreatitis without necrosis or infection, unspecified Abdominal pain Qualifiers: Abdominal location: epigastric Qualified Code(s): R10.13 - Epigastric pain
[2021-03-05] MEDS: LACTATED RINGER'S 1,000 ML IV SCH ×3 (04:50→16:20)
[2021-03-05] MEDS ORDERED: ENOXAPARIN INJ 40 MG/0.4 ML SYR SQ SCH (06:00)
--- NOTE | 2021-03-05 08:22 | CT Scan Report ---
ABDOMEN AND PELVIS CT WITH IV CONTRAST CT DOSE: 2092.36 mGy.cm HISTORY: Left lower quadrant abdominal pain. TECHNIQUE: Multiaxial CT images of the abdomen and pelvis were performed following the use of intrave nous contrast. A dose lowering technique was utilized adhering to the principles of ALARA. COMPARISON STUDY: Abdomen and pelvis CT 04/30/2020. FINDINGS: The lung bases are clear. No pneumoperitoneum. No pneumatosis. There is a left total hip ar throplasty. Small fat-containing left inguinal hernia. Colonic diverticulosis. Mild peripancreatic fa t stranding at the pancreatic tail with mild inflammatory change/fluid along the left paracolic gutte r. This is consistent with acute pancreatitis. Questionable thickening of the descending colon is lik homar due to underdistention. The liver, spleen, adrenal glands are unremarkable. There are few punctat e stones within the kidneys. No ureteral stones. No hydronephrosis. Small left renal cysts are noted. The bladder is unremarkable. No pelvic free fluid. No retroperitoneal lymphadenopathy. Normal calibe r abdominal aorta. No evidence for bowel obstruction. Normal appendix. IMPRESSION: 1. Mild inflammatory changes surrounding the tail of the pancreas consistent with acute pancreatitis. 2. Colonic diverticulosis. 3. Normal appendix. 4. No bowel obstruction. 5. Bilateral nephrolithiasis. No hydronephrosis. ACT 112: Negative or not required by law. Electronically signed by: Alberto Monique M.D. 03/05/2021 8:20 AM
[2021-03-05] MEDS ORDERED: FAMOTIDINE 20 MG in SYRINGE 3 ML IV SCH (09:00)
[2021-03-05] MEDS ORDERED: COUGH DROP (SUGAR FREE) LOZ 24 LOZ/1 BOX BUCCAL ONE (10:07)
--- NOTE | 2021-03-05 13:29 | Communication Note ---
Date of Service: March 05, 2021 Patient seen and examined same day therefore I will not be billing fo this encounter. Patient improving since admission with pain and nausea but not very hungry yet O/E mainly LLQ pain but mostly resolved at this time Idiopathic pancreatitis - no CBD dilatation, LFTs normal, triglycerides normal, very low alcohol intake, low likelihood iatrogenic (although both lisinopril and colchicine previously implicated), no history of autoimmune disease, increase LR to 200ml/hr, will increase to clear liquids now then advance diet as tolerated
[2021-03-05] MEDS ORDERED: TAMSULOSIN HCL 0.4 MG CAP PO SCH (21:00)
--- NOTE | 2021-03-06 19:08 | Discharge Summary ---
Date of Service March 06, 2021 Admission HPI Per Admitting Provider The patient is a 65-year-old male with a past medical history including lumbar DJD, left shoulder rotator cuff syndrome, gout, hypertension, BPH with LUTS and morbid obesity. He presents with symptoms as noted above. As the day progressed he had intermittent issues with fevers and due to the persistence of the discomfort, he presents to the ED for assessment. Significant abnormal laboratories: Lipase 2985, COVID-[address] scan of abdomen and pelvis with contrast: Acute pancreatitis. Mild inflammatory changes around the tail of the pancreas. Admission Exam Per Admitting Provider The patient is awake, alert and oriented 3, well developed and well nourished, normocephalic and atraumatic, lying in bed and in no acute distress. HEENT--PERRL, EOMI, mucous membranes and oropharynx mildly dry. Neck--supple. No JVD. No bruits. Thyroid normal, trachea midline, no adenopathy. Heart--normal S1 and S2. No murmurs, rubs or gallops. Lungs--clear bilaterally, no respiratory distress, no accessory muscle use. Abdomen--normal bowel sounds and soft. Nontender. Nondistended. Morbidly obese Extremities--no cyanosis or clubbing. No edema. Dermatologic--normal skin turgor, normal color, no abnormal lymph nodes, no rash. Neurologic--cranial nerves II through XII grossly intact. Rheumatologic--limited exam due to left-sided abdominal pain Psychiatric--normal affect. Principal Diagnosis pancreatitis Discharge Exam Constitutional WD/WN, vitals as above cooperative; no acute distress Eyes + anicteric sclerae ENMT external ear and nose normal, oropharynx normal Neck trachea midline Respiratory normal respiratory effort; no respiratory distress Musculoskeletal Gait: normal gait Skin no rashes, warm and dry Discharge Data Allergies Allergy/AdvReac Type Severity Reaction Status Date / Time adhesive tape Allergy Mild SKIN Verified 03/05/21 01:22 IRRITATION Consultations 03/05/21 02:04 ED Decision to Admit Stat Ordered Studies 03/04/21 23:49 CT abd pelvis IV con only Urgent Hospital Course (1) Acute pancreatitis: Mr. Hamilton is a 65 yo gentleman who is being admitted for acute pancreatitis. 1. Acute pancreatitis: He was given IV fluids and kept NPO. He was given zofran for nausea and Tylenol and morphine for pain control. On the evening of 03/05/21 patient reported marked improvement in his pain, and insisted he be discharged. He was unable to sleep due to a noisy roommate. He was counseled on the importance of gradually restarting diet, beginning with clear liquids and advancing to bland solids. He was told if he has recurrent pain, nausea or vomiting, he should stop eating - however if he cannot tolerate liquids, he may become dehydrated and need to return to the hospital for IV hydration. Alcohol intake was strongly discouraged. He was advised to follow up with his PCP within several days. 2. BPH w urinary obs/LUTS: Continue tamsulosin 0.4 mg at bedtime 3. HTN (hypertension): Hold lisinopril 4. Gout: Colchicine is only used as needed gout symptoms, which he last used for 2 days 1 week ago Total Time Total Time Spent Total Time Spent (In Minutes): see attending attestation Discharge Plan Discharge Items Patient Disposition: Home - Self-Care Reason For Visit: ACUTE PANCREATITIS Discharge Diagnosis: pancreatitis Activity: Resume your previous activity Non-emergency contact: Primary Care Provider Call non-emergency contact if: your symptoms worsen and your pain is not controlled Follow-up/Referrals: Da Jade MD [Primary Care Provider] - Diet: Clear liquid Addtl Attending Provider Instructions: You were hospitalized at [facility] for acute pancreatitis (inflammation of your pancreas). The reason why your pancreas became inflamed is unknown. You requested to leave the hospital earlier than advised due to needing to get better sleep. We do recommend you advance your diet as tolerated, starting with clear liquids (ie water, broth). Then slowly advance with bland solid foods. If you get recurrent pain, you may take Tylenol. You could also use ibuprofen, although we would recommend you take an over the counter pepcid with it. There is a chance that if you eat too much too soon, your pancreas will become re- inflamed, causing return of pain, nausea and vomiting. In this event, you may need to return to the hospital for IV pain mediation and/or IV fluids for hydration. We recommend you avoid any alcohol intake in the short-term. Please follow up with your family doctor within 1 week. Pending Studies at Discharge: No Stand-Alone Forms: My [facility] [employer], Smoking Cessation Medications and DC Order Prescriptions: Continued multivitamin Tablet 1 tab PO QPM RF: 0 glucosamine-chondroitin [Osteo Bi-Flex] 250-200 mg Tablet 2 tab PO QPM RF: 0 cholecalciferol (vitamin D3) [Vitamin D3] 2,000 unit Tablet 2,000 unit PO QPM RF: 0 lisinopril 10 mg Tablet 10 mg PO QAM RF: 0 docusate sodium [Colace] 100 mg capsule 200 mg PO QDD RF: 0 omega 9-gfv-dlf-fish oil [Fish Oil] 60-90-500 mg Capsule 1 cap PO QPM RF: 0 tamsulosin 0.4 mg Capsule 0.4 mg PO PM RF: 0 colchicine 0.6 mg tablet 0.6 mg PO QAM PRN (Reason: GOUT) RF: 0 Discharge Orders: Discharge Order (Routine); Ordered 03/05/21 Ordered By: Halle Mitchell/Other Patient Handouts: Understanding Pancreatitis Admission Data Admit Date/Time: 03/05/21 03:00 Attending Provider: Doni Banda Admit Provider: Roland Erickson Primary Care Provider: Da Jade Other Providers: Roland Erickson Other Interventions: Discharge Summary Assessment (RN) Last Done: 03/05/21 20:07 Resident Activity Tracking Resident Involvement: Resident Care Provided Care Provided: Adult Hospital Medicine
== END 2021-03-05 21:07 | disposition home or self-care (01) ==
LOC: ED 23:26 → INTOOBSV 03-05 03:00 → SUATTDRO 03-05 03:00 → EDINP 03-05 03:00 → 3N 03-05 15:20